=== PATIENT | male | born 1950 | race Caucasian/White ===

== ENCOUNTER 2017-06-12 02:07 | Inpatient (IN) | payer MEDICARE ==
[~2017-06-12] VITALS: Ht 180.3 cm; Wt 93.2 kg
[2017-06-12] VITALS (11 sets, daily range): BP systolic 144–183; BP diastolic 66–92
--- NOTE | ~2017-06-12 | CON ---
[place], [place] REPORT OF CONSULTATION NAME: [facility]Z [id number] UNIT #: [id number] ROOM: 403 DOCTOR: LA NENA TRAVIS,SEPTEMBER BIRTHDATE: [birth year] DOS: HISTORY OF PRESENT ILLNESS: The patient is a 67-year-old male who was admitted with abdominal pain. It began on the 06/11/2017. He was admitted on 06/12/2017. It was upper mid epigastric and radiated around to his back across the right side. He has been febrile while he has been hospitalized, some nausea, no emesis, had no stool since admission. He continues to run low grade temps. He was receiving Mefoxin that was changed to Zosyn this morning. His admitting blood cultures are now positive in one blood culture for gram-negative rods. ID is consulted for Gram-negative simon septicemia due to symptomatic cholelithiasis. He did have CT of the abdomen which demonstrated cholelithiasis without significant inflammation. Ultrasound of the gallbladder showed mild gallbladder wall thickening, but no biliary dilatation and diffuse hepatic steatosis. Repeat blood cultures were done this morning and are pending. He is being followed by Dr. Stockton with surgery. PAST MEDICAL HISTORY: As above as well as hyperlipidemia, diabetes, hypertension, right AKA, hip replacement. SOCIAL HISTORY: Drinks occasionally. He is a nonsmoker. No illicit drug use. FAMILY MEDICAL HISTORY: Father from an NV at the age of 59. Mother with CHF at the age of 75. ALLERGIES: No known drug allergies. CURRENT MEDICATIONS: Include Zosyn, which was ordered at 9 o'clock this morning at every 6 hours, 3.375 grams IV every 6 hours, Restoril, Zofran, morphine, milk of mag, Dulcolax, [place], and Tylenol. LABORATORY DATA: WBC is 14.0, platelets 93. BUN 10, creatinine 1.7, AST 61, ALT 73, alkaline phosphatase is 70, total bilirubin 1.0, lactic acid 2.0 yesterday evening, down from 2.4, lipase 167. REVIEW OF SYSTEMS: As above in history of present illness. States abdominal pain has improved somewhat. No cough or shortness of breath, is generally sore from hips to head from remaining in bed. Again, has a right AKA with prosthesis. He continues to run low grade temps up to 100.7 overnight. No shaking chills. No rashes. No nausea or vomiting, currently he is constipated. No peripheral edema. No difficulty with urination, pain or burning. Further review of systems is unremarkable. ALLERGIES: No known drug allergies. PHYSICAL EXAMINATION: VITAL SIGNS: Temperature 100.3, pulse 88, respirations 20, BP 140/74: GENERAL: A 67-year-old male, nontoxic in appearance. HEAD, EYES, EARS, NOSE AND THROAT: Normocephalic, no thrush. NECK: Supple. LUNGS: Clear to auscultation bilaterally. Respirations even and unlabored. [place], [place] REPORT OF CONSULTATION NAME: RORO FERNANDEZ UNIT #: [id number] ROOM: [facility] DOCTOR: LA NENA TRAVISSEPTEMBER BIRTHDATE: [birth year] HEART: Regular rhythm. No murmur appreciated. ABDOMEN: Soft. Mild distention, tenderness in right upper quadrant with deep palpation. No masses. Positive bowel sounds. EXTREMITIES: No edema. Does have right AKA. SKIN: Warm, dry, flushed, free of rashes. ASSESSMENT: Gram-negative simon septicemia due to cholelithiasis with no obstruction. PLAN: At this point, his antimicrobial spectrum has been expanded to Zosyn from Mefoxin since his blood cultures are positive, he does have some renal insufficiency, which has worsened since he was admitted. It was 1.13 on admission, now is up to 1.7. He has no eosinophils on his peripheral smear making reaction from his antibiotics less likely, again Zosyn has been started this a.m. The dosing needs to be adjusted for his renal insufficiency. Follow up on the blood cultures and adjust antibiotics accordingly. Case discussed with Dr. Hyun Caldera. After reviewing the chart, labs and cultures, I agree with the above plans as described. We will follow the patient up clinically and adjust accordingly. AQUILES DEUTSCH CNP HYUN CALDERA MD CM:CONSTR:REPORT OF CONSULTATION 1047 06/15/17 1010 interface
--- NOTE | ~2017-06-12 | PR ---
[place], [place] PROGRESS NOTE NAME: RORO FERNANDEZ UNIT #: [id number] ROOM: 403 DOCTOR: LA NENA TRAVIS,SEPTEMBER BIRTHDATE: [birth year] DOS: SUBJECTIVE: The patient is a 67-year-old male who is being followed for cholelithiasis with Klebsiella septicemia. He feels well. No nausea, vomiting or diarrhea. No abdominal pain. No cough or shortness of breath. Tem max today has been 99. His WBCs are 11.6, platelets 108. Sed rate 105, BUN 12, creatinine 1.09, AST 62, ALT 85, CRP 28.2. Blood cultures grew Klebsiella from the , which is pansensitive. The repeat blood cultures are sterile. He is currently on Lipitor, Zestril, Zosyn, Restoril, Zofran, milk of mag, Dulcolax and [place]. He has been released by Dr. Bautista with surgery, who plans on doing a cholecystectomy as an outpatient. PHYSICAL EXAMINATION: VITAL SIGNS: Temperature 99.0, pulse 74, respirations 18, BP 143/71. GENERAL: A 67-year-old male, in no acute distress. HEAD, EYES, EARS, NOSE AND THROAT: Normocephalic. No thrush. LUNGS: Clear to auscultation bilaterally. Respirations even and unlabored. HEART: Regular rhythm. No murmur appreciated. ABDOMEN: Soft, obese, nontender. EXTREMITIES: No edema. SKIN: Warm, dry, free of rashes. ASSESSMENT: Cholelithiasis, symptomatic with Klebsiella bacteremia. PLAN: I agree with surgery. At this point, he can be discharged on Augmentin. I did phone a script to [facility] for Augmentin 875 mg p.o. b.i.d., dispensed 14, no refills and he will see Dr. Bautista in follow up regarding further workup and a possible cholecystectomy. I also gave him my contact information if he has any trouble after he goes home with fever recurrence, etc. SEPTEMBER THADDEUS DEUSTCH [place], [place] PROGRESS NOTE NAME: RORO FERNANDEZ UNIT #: [id number] ROOM: 403 DOCTOR: L ANENA TRAVIS,SEPTEMBER BIRTHDATE: [birth year] HYUN CALDERA MD CM:PNTRANS [id number] SEPTEMBER LA NENA TRAVIS 06/16/17 2349 interface
--- NOTE | ~2017-06-12 | PR ---
[place], [place] PROGRESS NOTE NAME: [id number] UNIT #: [id number] ROOM: 403 DOCTOR: LA NENA TRAVIS,SEPTEMBER BIRTHDATE: [birth year] DOS: 06/15/2017 SUBJECTIVE: The patient is being followed for gram-negative simon septicemia. He has been afebrile today. His last temp max was 101.8 and that was at 6:45 yesterday evening. His WBCs are improving, they are down to 11.8 today. He has multiple gallstones without obstruction. His bilirubin is at 1.4. Creatinine has improved to 1.2, BUN 11. AST 71, ALT 83. He is alert and oriented, feeling better. No abdominal pain. No nausea or vomiting. Little loose stool x 1 this morning. No rash or itch. No cough or shortness of breath. LABORATORY DATA: WBCs 11.8, platelets 99. BUN 11, creatinine 1.2. Admitting Blood culture from June 13 with gram-negative rods. Repeat blood cultures from the are negative. CURRENT MEDICATIONS: Include Lipitor, Zestril, Zosyn, Restoril, Zofran, milk of mag, Dulcolax, [place]. PHYSICAL EXAMINATION: VITAL SIGNS: Show temperature 98.7, pulse 92, respirations 18, BP 149/72. GENERAL: A 67-year-old male, in no acute distress, nontoxic in appearance. HEAD, EYES, EARS, NOSE AND THROAT: Normocephalic. No thrush. LUNGS: Clear to auscultation bilaterally. Respirations even and unlabored. HEART: Regular rhythm. No murmur appreciated. ABDOMEN: Soft, less tender right upper quad. EXTREMITIES: No edema or deformity. He does have right AKA. SKIN: Warm, dry, free of rashes, flushed. ASSESSMENT: Gram-negative simon septicemia due to cholelithiasis. PLAN: He is currently on Zosyn with WBCs and temperature improving. We will continue the Zosyn and transition to orals once the bacteria has been identified and hopefully with sensitivities. We will even consider discharge. I agree Augmentin would probably be a good option depending on the gram-negative simon identified versus Levaquin and Flagyl. Case discussed with Dr. Hyun Caldera. ADDENDUM I agree with the above plans as described. We will follow the patient up and adjust accordingly. AQUILES DEUTSCH CNP [place], [place] PROGRESS NOTE NAME: RORO FERNANDEZ UNIT #: [id number] ROOM: 403 DOCTOR: LA NENA TRAVISSEPTEMBER BIRTHDATE: [birth year] HYUN CALDERA MD CM:PNTRANS [id number] AQUILES LA NENA TRAVIS 06/16/17 0146 interface
[~2017-06-12 02:07] MED LIST: NKHM; PERCOCET 325 MG1 TA7 PO
[2017-06-12] MEDS ORDERED: METFORMIN850 MG PO (02:16)
[2017-06-12] MEDS ORDERED: PRINIVIL20 M1 PO (02:17)
[2017-06-12 02:52] LABS: BASO % 0.1 % (0.0-1.0); EOS % 0.1 % (1.0-4.0); HEMOGLOBIN 15.6 g/dl (14.0-18.0); LYMPH # 0.9 10*3/uL (1.3-4.4); LYMPH % 6.3 % (27.0-41.0); MEAN CELL VOLUME 89.3 fl (80.0-94.0); MEAN CORPUSCULAR HGB CONC 34.7 g/dl (33.0-37.0); MEAN PLATELET VOLUME 10.9 fl (9.6-12.3); MONO # 0.8 10*3/uL (0.1-1.0); MONO % 5.8 % (3.0-9.0); NEUT # 12.3 10*3/uL (2.3-7.9); NEUT % 87.3 % (47.0-73.0); PLATELET COUNT AUTOMATED 188 10*3/uL (130-400); RED BLOOD COUNT 5.04 10*6/uL (4.50-5.90); RED CELL DISTRI WIDTH 13.1 % (0-14.5); WHITE BLOOD COUNT 14.1 10*3/uL (4.8-10.8)
[2017-06-12 03:11] LABS: ALKALINE PHOSPHATASE 72 U/L (45-117); BUN 13 mg/dl (7-24); CHLORIDE 100 mmol/L (98-107); CREATININE 1.13 mg/dL (0.70-1.30); LIPASE 323 U/L (73-393); POTASSIUM 3.9 mmol/L (3.5-5.1); SGOT/AST 15 IU/L (3-35); SGPT/ALT 23 U/L (12-78); SODIUM 136 mmol/L (136-145); TOTAL PROTEIN 7.9 gm/dL (6.4-8.2)
[2017-06-12 03:12] LABS: TROPONIN I < 0.015 ng/ml (<0.045)
[2017-06-12] MEDS ORDERED: LIPITOR20 MG PO (05:29)
[2017-06-12 15:51] LABS: BILIRUBIN NEGATIVE (NEGATIVE); BLOOD NEGATIVE (NEGATIVE); CLARITY CLEAR (CLEAR); COLOR YELLOW (YELLOW); GLUCOSE TRACE (NEGATIVE); KETONE NEGATIVE (NEGATIVE); LEUKO ESTERASE NEGATIVE (NEGATIVE); NITRITE NEGATIVE (NEGATIVE); PH 6.5 (5.0-9.0); SPECIFIC GRAVITY 1.015 (1.005-1.030); UROBILINOGEN 0.2 E.U./dl (0.2-1.0)
[2017-06-12 16:29] LABS: BACTERIA TRACE; RBC 0-2 rbc/hpf (0-2); WBC 0-2 wbc/hpf (0-5)
[2017-06-13] VITALS: BP 149/68
[2017-06-13 04:00] VITALS: BP 145/78
[2017-06-13 06:54] LABS: BASO % 0.1 % (0.0-1.0); HEMATOCRIT 42.4 % (42.0-52.0); HEMOGLOBIN 14.5 g/dl (14.0-18.0); INTERNATIONAL NORM RATIO 1.1 (2.0-3.5); LYMPH # 0.9 10*3/uL (1.3-4.4); LYMPH % 6.4 % (27.0-41.0); MEAN CELL VOLUME 90.6 fl (80.0-94.0); MEAN CORPUSCULAR HGB CONC 34.2 g/dl (33.0-37.0); MEAN PLATELET VOLUME 10.9 fl (9.6-12.3); MONO # 0.8 10*3/uL (0.1-1.0); MONO % 5.5 % (3.0-9.0); NEUT % 87.5 % (47.0-73.0); RED BLOOD COUNT 4.68 10*6/uL (4.50-5.90); RED CELL DISTRI WIDTH 13.2 % (0-14.5); WHITE BLOOD COUNT 13.7 10*3/uL (4.8-10.8)
[2017-06-13 06:57] LABS: PLATELET COUNT AUTOMATED 129 10*3/uL (130-400)
[2017-06-13 07:07] LABS: ALBUMIN 3.3 gm/dl (3.1-4.5); CREATININE 1.74 mg/dL (0.70-1.30); FREE T4 1.17 ng/dl (0.76-1.46); PHOSPHOROUS 2.5 mg/dL (2.5-4.9); TOTAL PROTEIN 7.2 gm/dL (6.4-8.2)
[2017-06-13 07:12] LABS: THYROID STIM HORMONE (HS) 0.35 uIU/ml (0.358-4.75)
[2017-06-13 08:00] VITALS: BP 144/70
[2017-06-13 12:00] VITALS: BP 141/76
[2017-06-13 16:00] VITALS: BP 141/73
[2017-06-13 19:54] VITALS: BP 165/77
[2017-06-14] VITALS: BP 140/74
[2017-06-14 06:39] LABS: BASO % 0.1 % (0.0-1.0); HEMATOCRIT 42.1 % (42.0-52.0); HEMOGLOBIN 14.5 g/dl (14.0-18.0); LYMPH # 0.6 10*3/uL (1.3-4.4); LYMPH % 4.4 % (27.0-41.0); MEAN CELL VOLUME 92.1 fl (80.0-94.0); MEAN CORPUSCULAR HGB 31.7 pg (27.0-31.0); MEAN CORPUSCULAR HGB CONC 34.4 g/dl (33.0-37.0); MEAN PLATELET VOLUME 10.3 fl (9.6-12.3); MONO # 0.9 10*3/uL (0.1-1.0); MONO % 6.5 % (3.0-9.0); NEUT # 12.4 10*3/uL (2.3-7.9); NEUT % 88.7 % (47.0-73.0); PLATELET COUNT AUTOMATED 93 10*3/uL (130-400); RED BLOOD COUNT 4.57 10*6/uL (4.50-5.90); RED CELL DISTRI WIDTH 13.2 % (0-14.5)
[2017-06-14 07:09] LABS: ALBUMIN 2.8 gm/dl (3.1-4.5); CREATININE 1.7 mg/dL (0.70-1.30); POTASSIUM 4.3 mmol/L (3.5-5.1)
[2017-06-14 08:00] VITALS: BP 146/78
[2017-06-14 12:00] VITALS: BP 160/74
[2017-06-14 16:31] VITALS: BP 171/81
[2017-06-15] VITALS: BP 154/58
[2017-06-15 07:07] LABS: BASO % 0.2 % (0.0-1.0); HEMOGLOBIN 12.5 g/dl (14.0-18.0); LYMPH # 0.6 10*3/uL (1.3-4.4); MEAN CELL VOLUME 90.5 fl (80.0-94.0); MEAN CORPUSCULAR HGB 30.6 pg (27.0-31.0); MEAN CORPUSCULAR HGB CONC 33.8 g/dl (33.0-37.0); MEAN PLATELET VOLUME 11.4 fl (9.6-12.3); MONO # 1.1 10*3/uL (0.1-1.0); MONO % 9.2 % (3.0-9.0); NEUT # 10.1 10*3/uL (2.3-7.9); NEUT % 84.9 % (47.0-73.0); PLATELET COUNT AUTOMATED 99 10*3/uL (130-400); RED BLOOD COUNT 4.09 10*6/uL (4.50-5.90); RED CELL DISTRI WIDTH 13.1 % (0-14.5); WHITE BLOOD COUNT 11.8 10*3/uL (4.8-10.8)
[2017-06-15 07:29] LABS: ALBUMIN 2.4 gm/dl (3.1-4.5); ALKALINE PHOSPHATASE 68 U/L (45-117); BUN 11 mg/dl (7-24); CHLORIDE 105 mmol/L (98-107); SGOT/AST 71 IU/L (3-35); SGPT/ALT 83 U/L (12-78); SODIUM 136 mmol/L (136-145); TOTAL PROTEIN 6.5 gm/dL (6.4-8.2)
[2017-06-15 08:00] VITALS: BP 160/74
[2017-06-15 12:00] VITALS: BP 149/72
[2017-06-15 16:00] VITALS: BP 163/71
[2017-06-15 20:00] VITALS: BP 121/51
[2017-06-16] VITALS: BP 129/71
[2017-06-16 06:39] LABS: BASO % 0.1 % (0.0-1.0); EOS % 0.1 % (1.0-4.0); HEMATOCRIT 35.9 % (42.0-52.0); HEMOGLOBIN 12.3 g/dl (14.0-18.0); LYMPH # 0.6 10*3/uL (1.3-4.4); LYMPH % 5.3 % (27.0-41.0); MEAN CELL VOLUME 90.7 fl (80.0-94.0); MEAN CORPUSCULAR HGB 31.1 pg (27.0-31.0); MEAN CORPUSCULAR HGB CONC 34.3 g/dl (33.0-37.0); MEAN PLATELET VOLUME 11.2 fl (9.6-12.3); MONO # 1.3 10*3/uL (0.1-1.0); MONO % 11.2 % (3.0-9.0); NEUT # 9.6 10*3/uL (2.3-7.9); NEUT % 82.5 % (47.0-73.0); PLATELET COUNT AUTOMATED 108 10*3/uL (130-400); RED BLOOD COUNT 3.96 10*6/uL (4.50-5.90); RED CELL DISTRI WIDTH 13.3 % (0-14.5); WHITE BLOOD COUNT 11.6 10*3/uL (4.8-10.8)
[2017-06-16 07:09] LABS: ALBUMIN 2.1 gm/dl (3.1-4.5); BUN 12 mg/dl (7-24); CHLORIDE 106 mmol/L (98-107); CREATININE 1.09 mg/dL (0.70-1.30); LIPASE 334 U/L (73-393); POTASSIUM 3.4 mmol/L (3.5-5.1); SGOT/AST 62 IU/L (3-35); SGPT/ALT 85 U/L (12-78); SODIUM 138 mmol/L (136-145)
[2017-06-16 07:24] LABS: ALKALINE PHOSPHATASE 73 U/L (45-117); TOTAL PROTEIN 6.3 gm/dL (6.4-8.2)
[2017-06-16 08:00] VITALS: BP 146/76
[2017-06-16 12:00] VITALS: BP 143/71
[2017-06-16 16:00] VITALS: BP 151/71
== END 2017-06-16 17:03 | disposition home or self-care (01) | DRG 872 ==
LOC: ED 02:07 → 4E 04:17 → EDHOLD 04:17 → 4E 04:33
PROVIDERS: Family Medicine; Internal Medicine; Student in an Organized Health Care Education/Training Program
DX: A41.59 Other Gram-negative sepsis (principal); K80.00 Calculus of gallbladder with acute cholecystitis without obstruction; Z89.611 Acquired absence of right leg above knee; I10 Essential (primary) hypertension; E11.65 Type 2 diabetes mellitus with hyperglycemia; E78.2 Mixed hyperlipidemia; Z96.649 Presence of unspecified artificial hip joint; Z79.899 Other long term (current) drug therapy; Z79.84 Long term (current) use of oral hypoglycemic drugs; Z82.49 Family history of ischemic heart disease and other diseases of the circulatory system

== ENCOUNTER → 2017-06-21 | Day surgery (SDC) | payer MEDICARE ==
[2017-06-20 11:03] VITALS: BP 127/88
[2017-06-20 11:45] LABS: BASO % 0.2 % (0.0-1.0); EOS # 0.1 10*3/uL (0.0-0.4); EOS % 0.5 % (1.0-4.0); HEMATOCRIT 39.1 % (42.0-52.0); HEMOGLOBIN 13.3 g/dl (14.0-18.0); LYMPH # 0.8 10*3/uL (1.3-4.4); LYMPH % 8.8 % (27.0-41.0); MEAN CELL VOLUME 90.9 fl (80.0-94.0); MEAN CORPUSCULAR HGB 30.9 pg (27.0-31.0); MEAN PLATELET VOLUME 10.7 fl (9.6-12.3); MONO # 0.6 10*3/uL (0.1-1.0); MONO % 6.5 % (3.0-9.0); NEUT # 7.8 10*3/uL (2.3-7.9); NEUT % 82.7 % (47.0-73.0); PLATELET COUNT AUTOMATED 341 10*3/uL (130-400); RED CELL DISTRI WIDTH 13.3 % (0-14.5); WHITE BLOOD COUNT 9.5 10*3/uL (4.8-10.8)
[2017-06-20 12:28] LABS: ALBUMIN 2.8 gm/dl (3.1-4.5); ALKALINE PHOSPHATASE 71 U/L (45-117); BUN 13 mg/dl (7-24); CHLORIDE 104 mmol/L (98-107); CREATININE 1.09 mg/dL (0.70-1.30); POTASSIUM 3.7 mmol/L (3.5-5.1); SGOT/AST 29 IU/L (3-35); SGPT/ALT 61 U/L (12-78); SODIUM 141 mmol/L (136-145); TOTAL PROTEIN 7.6 gm/dL (6.4-8.2)
[~2017-06-21] VITALS: Ht 180.3 cm; Wt 86.2 kg
[~2017-06-21] MED LIST changes: +LIPITOR20 MG PO; +METFORMIN850 MG PO; +PRINIVIL20 M1 PO
--- NOTE | ~2017-06-21 | O ---
[place], [place] OPERATIVE NOTE NAME: [facility]Z [id number] UNIT #: [id number] ROOM: DOCTOR: RICKIE CRAIN MD BIRTHDATE: [birth year] DOS: 06/21/2017 PREOPERATIVE DIAGNOSIS: Calculous cholecystitis. POSTOPERATIVE DIAGNOSES: Acute on chronic calculous cholecystitis, intraoperative bleeding, suspected hepatic vein. PROCEDURE: Laparoscopic cholecystectomy with intraoperative cholangiogram converted to open cholecystectomy dome-down, attempted control of intraoperative bleeding. SURGEON: Rickie Crain M.D. ANESTHESIA: General. ESTIMATED BLOOD LOSS: 2500 mL. FLUIDS: Crystalloid 5500 mL, 1000 has been 4 units packed red cells. DRAINS: None. Satinsky clamps above and below injury, no evidence of liver ischemia. Gallbladder still attached and cystic duct has not been transected. Intraoperative cholangiogram showed common bile duct stones with good visualization of the proximal and distal common bile ducts, but poor visualization of cystic duct stump and inability to identify this. Findings discussed with Dr. Carolina, trauma surgeon who accepted transfer. INDICATIONS: This is a 67-year-old gentleman who had come in with what was initially thought to be symptomatic biliary colic on June 12 and was treated with IV antibiotics for what appeared to be acute cholecystitis. White count came down after change from cefoxitin to Zosyn and he was sent home with clinical resolution and normalizing white count on June 16 with continued oral antibiotics, Augmentin 875 mg b.i.d. He was seen in the office on June 19 and wished to proceed with cholecystectomy before the end of the year, but clinically was feeling better with normal bowel function and tolerating a diet. The patient now for cholecystectomy with the risks, benefits, possible complications of procedure discussed with him in the office and in the hospital preoperatively and at the bedside with his as well during his hospitalization. DESCRIPTION OF PROCEDURE: The patient brought to the operating suite, placed on table in supine position. Adequate conscious sedation and general anesthetic was induced. Endotracheal tube was placed secured. The abdomen was prepped and draped in sterile fashion including placement of orogastric Ellsworth Sump to decompress the stomach. The patient voided preoperatively. He received the antibiotic prophylaxis preoperatively with cefazolin with weight appropriate dosage per SCIP protocol. The abdomen was entered through a small supraumbilical incision and using the patient's existing umbilical ring was easily entered and open pneumoperitoneum thus achieved. The abdomen was [place], [place] OPERATIVE NOTE NAME: RORO FERNANDEZ UNIT #: [id number] ROOM: DOCTOR: BREANN MAGALLONRICKIE PARUL BIRTHDATE: [birth year] insufflated with appropriate volume and filling pressure of carbon dioxide gas. Diagnostic laparoscopy ensued and the patient was seen to have omentum fairly adherent to the gallbladder, consistent with his prior cholecystitis. The patient had trocar sites then placed through separate stab incisions under local anesthetic. A 5 mm Optiview trocar was placed in the subxiphoid and in the right lateral flank. The gallbladder was elevated slightly into a very tedious dissection with blunt dissection and electrocautery and sharp dissection, the omentum was taken down from the liver edge and from the gallbladder that was quite adherent. This was freed through a fairly protracted careful dissection due to the inflammatory reaction on the gallbladder. Once this was done, requiring about an hour of dissection, this was better exposed. There was a small hole in the gallbladder from retracting it due to being somewhat friable due to the inflammation. This was dealt with as best as possible, eventually was controlled with an Endoloop of 0 PDS and the gallbladder retracted back over the liver. A fourth trocar was then placed in the right flank as well under local anesthetic to retract the neck of the gallbladder. This could not really be ascertained well due to the inflammation and ____ was used to gently retract inferiorly and push the duodenum out of the way to better open the peritoneum of the hepatoduodenal ligament, proximal by the neck of the gallbladder and try to ascertain the site. Once enough of the gallbladder was freed, attention was directed to fluoro cholangiography using a Perdue clamp and needle. It was difficult to ascertain where the neck of the gallbladder was and cholangiography was successful, showing the extrahepatic biliary duct well with stones in the proximal common bile duct, but flow into the duodenum. Multiple stones were present. The cholangiogram needle could be seen probably fairly close to the origin of the cystic duct, but the cystic duct was not well visualized. Because of this, after looking at the films and consulting with the fire prevention chief who had arrived, it was decided to open to complete the cholecystectomy and then perform ERCP either later in the day or remotely, as the patient has had no episodes of jaundice clinically in spite of the stones. At this point, the case was converted to open cholecystectomy through a standard right subcostal muscle splitting incision. Bookwalter retractor was placed for exposure. Attention was then directed to dome-down cholecystectomy with cautery. The gallbladder was being taken down inferiorly and ____ still short of the neck of the Gallbladder the anatomy was quite inflamed and difficult to ascertain. The gallbladder was opened and 3 large stones removed and handed off as specimen and the casting operator's index finger inserted to feel for the neck of the gallbladder. It could be seen that the very distal gallbladder just above the site of the cholangiography needle insertion was just towards the neck of the gallbladder from the end that could be reached with the finger with assumption that this was the origin, beginning of the cystic duct leaving the gallbladder at the neck of the gallbladder. Using this as a guide, the cautery was used to further skeletonize the gallbladder from the liver. During retraction of this some bleeding was encountered. It was difficult to tell whether this was from in the parenchyma of the liver and initially was controlled with cautery and then there was a fairly significant bruno of bleeding as this was done. This was immediately controlled with the casting operator's finger with digital pressure. Further suction and exposure was attempted with additional assistance in the operating room including calling for one of the hospital primary care residents for additional set of hands to retract with inability to expose this and [place], [place] OPERATIVE NOTE NAME: RORO FERNANDEZ UNIT #: [id number] ROOM: DOCTOR: RICKIE CRAIN MD BIRTHDATE: [birth year] adequately control the bleeding, other than with keeping from direct pressure on the site with laparotomy pad. The incision was opened further and with similar results, but the patient was hemodynamically stable as this was done, keeping digital pressure at the area. Vascular clamps were obtained and eventually with placement of 2 straight and 1 side-biting clamp, the attention was directed to clamping above and below with digital pressure was present and this adequately controlled the bleeding. ____ this was part of the hepatic vein or if this was part of the portal vein. Initial attempts to get better exposure and assess this injury for repair were performed and with further bleeding on evaluation, the clamp was replaced and left in place. At this point having made multiple calls to try and get more experienced help including vascular surgeon, additional general surgeon from the staff and other physician support, with patient hemodynamically stable, a call was made to [facility] with conversation with Dr. Carolina from the Trauma Surgery Program who accepted the patient for transfer. The patient is being sent with Satinsky clamps in place and with his laparotomy incision packed with an Ioban drape and occlusive dressing over this for transport. He has arterial line, Morrison catheter, which was placed intraoperatively prior to opening the subcostal incision during conversion to open cholecystectomy and esophageal bleed. The patient is stable with adequate hemodynamics and fluids and blood loss as noted. I will be in contact with Dr. Carolina and offered to accompany the patient during transport, which he felt was probably not necessary as long as the clamps are in place. RICKIE CRAIN MD CM:OPRECORD:OPERATIVE NOTE [id number] RICKIE CRAIN MD 06/21/172031 interface
[2017-06-21 07:13] VITALS: BP 145/85
[2017-06-21 13:37] LABS: HEMATOCRIT 23.4 % (42.0-52.0)
== END | disposition home or self-care (01) ==
LOC: SDC 06-20 11:00 → 4E 10:54 → SDC 10:54
DX: K80.46 Calculus of bile duct with acute and chronic cholecystitis without obstruction (principal); Z53.31 Laparoscopic surgical procedure converted to open procedure; E11.9 Type 2 diabetes mellitus without complications; I10 Essential (primary) hypertension; E78.5 Hyperlipidemia, unspecified; Z79.84 Long term (current) use of oral hypoglycemic drugs; Z89.611 Acquired absence of right leg above knee

== ENCOUNTER → 2018-02-20 | Outpatient (CLI) | payer MEDICARE ==
[~2018-02-20] MED LIST changes: +ASPIRIN CHEWABL81 MG PO; +COLACE100 MG PO; +Lopressor25 MG PO; +METOCLOPRAMIDE5 MG PO; +PROTONIX TR40 M1 PO; +SEPTDS PO; +SIROLIMUS1 MG PO
[2018-02-20 09:10] LABS: BASO # 0.1 10*3/uL (0.0-0.1); BASO % 0.6 % (0.0-1.0); EOS # 0.4 10*3/uL (0.0-0.4); HEMATOCRIT 39.7 % (42.0-52.0); HEMOGLOBIN 11.6 g/dl (14.0-18.0); LYMPH # 1.8 10*3/uL (1.3-4.4); LYMPH % 21.6 % (27.0-41.0); MEAN CELL VOLUME 81.7 fl (80.0-94.0); MEAN CORPUSCULAR HGB 23.9 pg (27.0-31.0); MEAN CORPUSCULAR HGB CONC 29.2 g/dl (33.0-37.0); MONO # 0.7 10*3/uL (0.1-1.0); MONO % 8.8 % (3.0-9.0); NEUT # 5.2 10*3/uL (2.3-7.9); NEUT % 63.4 % (47.0-73.0); PLATELET COUNT AUTOMATED 337 10*3/uL (130-400); RED BLOOD COUNT 4.86 10*6/uL (4.50-5.90); WHITE BLOOD COUNT 8.3 10*3/uL (4.8-10.8)
[2018-02-20 09:23] LABS: ACT PARTIAL THROMBO TIME 24.1 SECONDS (20.8-31.5); ALBUMIN 2.6 gm/dl (3.1-4.5); CREATININE 3.6 mg/dL (0.70-1.30); PHOSPHOROUS 3.8 mg/dL (2.5-4.9); POTASSIUM 4.1 mmol/L (3.5-5.1)
[2018-02-25 06:03] LABS: CMV QNT Negative (Negative)
== END | disposition home or self-care (01) ==
LOC: LAB 08:41
PROVIDERS: Transplant Surgery
DX: D68.8 Other specified coagulation defects (principal); Z94.4 Liver transplant status

== ENCOUNTER → 2018-03-10 | Outpatient (CLI) | payer MEDICARE | LOC: LAB 13:19 | DX: N18.9 Chronic kidney disease, unspecified (principal) ==

== ENCOUNTER → 2018-03-20 | Outpatient (CLI) | payer MEDICARE ==
[2018-03-20 09:25] LABS: BASO % 0.6 % (0.0-1.0); EOS # 0.4 10*3/uL (0.0-0.4); EOS % 5.3 % (1.0-4.0); HEMOGLOBIN 10.1 g/dl (14.0-18.0); LYMPH # 1.7 10*3/uL (1.3-4.4); LYMPH % 26.2 % (27.0-41.0); MEAN CELL VOLUME 78.1 fl (80.0-94.0); MEAN CORPUSCULAR HGB 22.5 pg (27.0-31.0); MEAN CORPUSCULAR HGB CONC 28.9 g/dl (33.0-37.0); MEAN PLATELET VOLUME 9.9 fl (9.6-12.3); MONO # 0.6 10*3/uL (0.1-1.0); MONO % 9.8 % (3.0-9.0); NEUT # 3.8 10*3/uL (2.3-7.9); NEUT % 57.8 % (47.0-73.0); PLATELET COUNT AUTOMATED 322 10*3/uL (130-400); RED BLOOD COUNT 4.48 10*6/uL (4.50-5.90); RED CELL DISTRI WIDTH 17.6 % (0-14.5); WHITE BLOOD COUNT 6.6 10*3/uL (4.8-10.8)
[2018-03-20 10:03] LABS: ALBUMIN 2.6 gm/dl (3.1-4.5); CREATININE 3.44 mg/dL (0.70-1.30); PHOSPHOROUS 3.9 mg/dL (2.5-4.9); TOTAL PROTEIN 8.7 gm/dL (6.4-8.2)
[2018-03-20 10:04] LABS: INTERNATIONAL NORM RATIO 0.9 (2.0-3.5)
[2018-03-22 20:06] LABS: CMV QNT Negative (Negative)
== END | disposition home or self-care (01) ==
LOC: LAB 09:03
PROVIDERS: Transplant Surgery
DX: Z48.23 Encounter for aftercare following liver transplant (principal); N18.9 Chronic kidney disease, unspecified; Z94.4 Liver transplant status

== ENCOUNTER → 2018-04-03 | Outpatient (CLI) | payer MEDICARE ==
[2018-04-03 08:45] LABS: BASO % 0.3 % (0.0-1.0); EOS # 0.2 10*3/uL (0.0-0.4); HEMATOCRIT 33.1 % (42.0-52.0); HEMOGLOBIN 9.9 g/dl (14.0-18.0); MEAN CELL VOLUME 75.6 fl (80.0-94.0); MEAN CORPUSCULAR HGB 22.6 pg (27.0-31.0); MEAN CORPUSCULAR HGB CONC 29.9 g/dl (33.0-37.0); MEAN PLATELET VOLUME 10.2 fl (9.6-12.3); MONO # 0.6 10*3/uL (0.1-1.0); MONO % 9.2 % (3.0-9.0); NEUT # 3.8 10*3/uL (2.3-7.9); NEUT % 56.9 % (47.0-73.0); PLATELET COUNT AUTOMATED 254 10*3/uL (130-400); RED BLOOD COUNT 4.38 10*6/uL (4.50-5.90); RED CELL DISTRI WIDTH 18.6 % (0-14.5); WHITE BLOOD COUNT 6.7 10*3/uL (4.8-10.8)
[2018-04-03 09:14] LABS: ALBUMIN 2.7 gm/dl (3.1-4.5); BILIRUBIN, DIRECT < 0.1 mg/dL (0.0-0.2); BUN 52 mg/dl (7-24); CHLORIDE 109 mmol/L (98-107); CHOLESTEROL 218 mg/dL (<200); CREATININE 3.37 mg/dL (0.70-1.30); GAMMA GLUTAMYL TRANSPEPTIDASE 280 U/L (15-85); HDL CHOLESTEROL 41 mg/dl (40-60); PHOSPHOROUS 3.2 mg/dL (2.5-4.9); POTASSIUM 4.2 mmol/L (3.5-5.1); SGOT/AST 28 IU/L (3-35); SGPT/ALT 54 U/L (12-78); SODIUM 140 mmol/L (136-145)
[2018-04-03 09:17] LABS: ALKALINE PHOSPHATASE 295 U/L (45-117); LDL CHOLESTEROL 121 mg/dL (9-159); TOTAL PROTEIN 8.9 gm/dL (6.4-8.2); TRIGLYCERIDES 280 mg/dl (<150); VLDL CHOLESTEROL 56 mg/dL (6-40)
== END | disposition home or self-care (01) ==
LOC: LAB 08:12
PROVIDERS: Transplant Surgery
DX: Z48.23 Encounter for aftercare following liver transplant (principal); Z94.4 Liver transplant status

== ENCOUNTER → 2018-04-17 | Outpatient (CLI) | payer MEDICARE ==
[2018-04-17 09:40] LABS: BASO % 0.4 % (0.0-1.0); EOS # 0.1 10*3/uL (0.0-0.4); EOS % 1.8 % (1.0-4.0); HEMOGLOBIN 8.7 g/dl (14.0-18.0); LYMPH # 2.4 10*3/uL (1.3-4.4); LYMPH % 30.7 % (27.0-41.0); MEAN CORPUSCULAR HGB 21.8 pg (27.0-31.0); MONO # 0.7 10*3/uL (0.1-1.0); MONO % 8.9 % (3.0-9.0); NEUT # 4.6 10*3/uL (2.3-7.9); NEUT % 57.8 % (47.0-73.0); PLATELET COUNT AUTOMATED 302 10*3/uL (130-400); RED CELL DISTRI WIDTH 18.7 % (0-14.5); WHITE BLOOD COUNT 7.9 10*3/uL (4.8-10.8)
[2018-04-17 10:06] LABS: ALBUMIN 2.6 gm/dl (3.1-4.5); BUN 58 mg/dl (7-24); CHLORIDE 109 mmol/L (98-107); CREATININE 4.67 mg/dL (0.70-1.30); GAMMA GLUTAMYL TRANSPEPTIDASE 350 U/L (15-85); POTASSIUM 4.3 mmol/L (3.5-5.1); SGOT/AST 32 IU/L (3-35); SGPT/ALT 63 U/L (12-78); SODIUM 139 mmol/L (136-145); TOTAL PROTEIN 8.9 gm/dL (6.4-8.2)
[2018-04-17 10:11] LABS: ALKALINE PHOSPHATASE 374 U/L (45-117); BILIRUBIN, DIRECT < 0.1 mg/dL (0.0-0.2); CHOLESTEROL 230 mg/dL (<200); HDL CHOLESTEROL 45 mg/dl (40-60); LDL CHOLESTEROL 140 mg/dL (9-159); PHOSPHOROUS 3.8 mg/dL (2.5-4.9); TRIGLYCERIDES 227 mg/dl (<150); VLDL CHOLESTEROL 45 mg/dL (6-40)
== END | disposition home or self-care (01) ==
LOC: LAB 09:05
PROVIDERS: Transplant Surgery
DX: Z48.23 Encounter for aftercare following liver transplant (principal); Z94.4 Liver transplant status

== ENCOUNTER → 2018-04-24 | Outpatient (CLI) | payer MEDICARE ==
[2018-04-24 09:32] LABS: BASO % 0.4 % (0.0-1.0); EOS # 0.1 10*3/uL (0.0-0.4); EOS % 1.4 % (1.0-4.0); HEMATOCRIT 30.1 % (42.0-52.0); HEMOGLOBIN 8.8 g/dl (14.0-18.0); LYMPH # 2.3 10*3/uL (1.3-4.4); LYMPH % 33.6 % (27.0-41.0); MEAN CELL VOLUME 74.7 fl (80.0-94.0); MEAN CORPUSCULAR HGB 21.8 pg (27.0-31.0); MEAN CORPUSCULAR HGB CONC 29.2 g/dl (33.0-37.0); MEAN PLATELET VOLUME 10.1 fl (9.6-12.3); MONO # 0.7 10*3/uL (0.1-1.0); MONO % 9.8 % (3.0-9.0); NEUT # 3.7 10*3/uL (2.3-7.9); NEUT % 54.1 % (47.0-73.0); PLATELET COUNT AUTOMATED 356 10*3/uL (130-400); RED BLOOD COUNT 4.03 10*6/uL (4.50-5.90); RED CELL DISTRI WIDTH 19.6 % (0-14.5); WHITE BLOOD COUNT 6.9 10*3/uL (4.8-10.8)
[2018-04-24 09:45] LABS: ALBUMIN 2.9 gm/dl (3.1-4.5); BILIRUBIN, DIRECT < 0.1 mg/dL (0.0-0.2); BUN 61 mg/dl (7-24); CHLORIDE 111 mmol/L (98-107); CHOLESTEROL 236 mg/dL (<200); CREATININE 4.27 mg/dL (0.70-1.30); GAMMA GLUTAMYL TRANSPEPTIDASE 291 U/L (15-85); PHOSPHOROUS 4.4 mg/dL (2.5-4.9); POTASSIUM 4.5 mmol/L (3.5-5.1); SGOT/AST 24 IU/L (3-35); SGPT/ALT 53 U/L (12-78); SODIUM 139 mmol/L (136-145); TOTAL PROTEIN 8.9 gm/dL (6.4-8.2); TRIGLYCERIDES 363 mg/dl (<150); VLDL CHOLESTEROL 73 mg/dL (6-40)
[2018-04-24 09:46] LABS: ALKALINE PHOSPHATASE 285 U/L (45-117); HDL CHOLESTEROL 35 mg/dl (40-60); LDL CHOLESTEROL 128 mg/dL (9-159)
== END | disposition home or self-care (01) ==
LOC: LAB 09:08
PROVIDERS: Transplant Surgery
DX: Z48.23 Encounter for aftercare following liver transplant (principal); Z94.4 Liver transplant status

== ENCOUNTER → 2018-05-01 | Outpatient (CLI) | payer MEDICARE ==
[~2018-05-01] MED LIST changes: -ASPIRIN CHEWABL81 MG PO; -COLACE100 MG PO; -Lopressor25 MG PO; -METOCLOPRAMIDE5 MG PO; -PROTONIX TR40 M1 PO; -SEPTDS PO; -SIROLIMUS1 MG PO
[2018-05-01 10:01] LABS: INTERNATIONAL NORM RATIO 1.1 (2.0-3.5)
[2018-05-01 10:11] LABS: ALBUMIN 2.6 gm/dl (3.1-4.5); CREATININE 4.01 mg/dL (0.70-1.30); HEMATOCRIT 28.2 % (42.0-52.0); HEMOGLOBIN 8.4 g/dl (14.0-18.0); MEAN CELL VOLUME 74.6 fl (80.0-94.0); MEAN CORPUSCULAR HGB 22.2 pg (27.0-31.0); MEAN CORPUSCULAR HGB CONC 29.8 g/dl (33.0-37.0); MEAN PLATELET VOLUME 10.5 fl (9.6-12.3); PLATELET COUNT AUTOMATED 273 10*3/uL (130-400); POTASSIUM 4.7 mmol/L (3.5-5.1); RED BLOOD COUNT 3.78 10*6/uL (4.50-5.90); RED CELL DISTRI WIDTH 22.2 % (0-14.5); TOTAL PROTEIN 8.3 gm/dL (6.4-8.2)
[2018-05-01 10:12] LABS: BILIRUBIN, DIRECT 0.4 mg/dL (0.0-0.2)
[2018-05-01 11:01] LABS: MICROCYTOSIS SLIGHT; OVALOCYTES FEW; PLATELET SUFFICIENCY NORMAL (NORMAL); POLYCHROMASIA SLIGHT; TOTAL CELLS COUNTED 100 #CELLS
[2018-05-05 17:11] LABS: CMV QNT Negative (Negative)
== END | disposition home or self-care (01) ==
LOC: LAB 09:17
PROVIDERS: Transplant Surgery
DX: Z48.23 Encounter for aftercare following liver transplant (principal); Z94.4 Liver transplant status

== ENCOUNTER → 2018-05-13 | Outpatient (CLI) | payer MEDICARE ==
[~2018-05-13] MED LIST changes: +ASPIRIN CHEWABL81 MG PO; +COLACE100 MG PO; +Lopressor25 MG PO; +METOCLOPRAMIDE5 MG PO; +PROTONIX TR40 M1 PO; +SEPTDS PO; +SIROLIMUS1 MG PO
[2018-05-13 10:35] LABS: ALBUMIN 2.2 gm/dl (3.1-4.5); BILIRUBIN, DIRECT 0.4 mg/dL (0.0-0.2); CREATININE 5.24 mg/dL (0.70-1.30); PHOSPHOROUS 6.5 mg/dL (2.5-4.9); POTASSIUM 5.3 mmol/L (3.5-5.1); TOTAL PROTEIN 8.9 gm/dL (6.4-8.2)
[2018-05-13 10:44] LABS: HEMATOCRIT 26.3 % (42.0-52.0); HEMOGLOBIN 7.5 g/dl (14.0-18.0); MEAN CORPUSCULAR HGB 22.5 pg (27.0-31.0); MEAN CORPUSCULAR HGB CONC 28.5 g/dl (33.0-37.0); MEAN PLATELET VOLUME 11.2 fl (9.6-12.3); PLATELET COUNT AUTOMATED 519 10*3/uL (130-400); RED BLOOD COUNT 3.33 10*6/uL (4.50-5.90); RED CELL DISTRI WIDTH 26.2 % (0-14.5); WHITE BLOOD COUNT 16.2 10*3/uL (4.8-10.8)
[2018-05-13 10:47] LABS: INTERNATIONAL NORM RATIO 1.1 (2.0-3.5)
[2018-05-13 11:10] LABS: BURR CELLS FEW; MICROCYTOSIS SLIGHT; OVALOCYTES FEW; PLATELET SUFFICIENCY HIGH (NORMAL); POLYCHROMASIA SLIGHT; TOTAL CELLS COUNTED 100 #CELLS
[2018-05-16 10:05] LABS: CMV QNT Negative (Negative)
== END | disposition home or self-care (01) ==
LOC: LAB 09:21
PROVIDERS: Transplant Surgery
DX: Z94.4 Liver transplant status (principal)

== ENCOUNTER → 2018-05-27 | Outpatient (CLI) | payer MEDICARE ==
[~2018-05-27] MED LIST changes: -ASPIRIN CHEWABL81 MG PO; -COLACE100 MG PO; -Lopressor25 MG PO; -METOCLOPRAMIDE5 MG PO; -PROTONIX TR40 M1 PO; -SEPTDS PO; -SIROLIMUS1 MG PO
[2018-05-27 10:22] LABS: BASO % 0.3 % (0.0-1.0); EOS # 0.1 10*3/uL (0.0-0.4); HEMATOCRIT 29.9 % (42.0-52.0); HEMOGLOBIN 8.9 g/dl (14.0-18.0); LYMPH % 21.2 % (27.0-41.0); MEAN CELL VOLUME 80.6 fl (80.0-94.0); MEAN CORPUSCULAR HGB CONC 29.8 g/dl (33.0-37.0); MEAN PLATELET VOLUME 10.2 fl (9.6-12.3); MONO # 0.6 10*3/uL (0.1-1.0); MONO % 6.7 % (3.0-9.0); NEUT # 6.6 10*3/uL (2.3-7.9); NEUT % 70.4 % (47.0-73.0); PLATELET COUNT AUTOMATED 289 10*3/uL (130-400); RED BLOOD COUNT 3.71 10*6/uL (4.50-5.90); RED CELL DISTRI WIDTH 23.4 % (0-14.5); WHITE BLOOD COUNT 9.4 10*3/uL (4.8-10.8)
[2018-05-27 10:40] LABS: ALBUMIN 2.1 gm/dl (3.1-4.5); BILIRUBIN, DIRECT 0.2 mg/dL (0.0-0.2); CREATININE 4.34 mg/dL (0.70-1.30); PHOSPHOROUS 4.5 mg/dL (2.5-4.9); POTASSIUM 3.9 mmol/L (3.5-5.1); TOTAL PROTEIN 9.3 gm/dL (6.4-8.2)
== END | disposition home or self-care (01) ==
LOC: LAB 09:38
PROVIDERS: Transplant Surgery
DX: Z48.23 Encounter for aftercare following liver transplant (principal); Z94.4 Liver transplant status

== ENCOUNTER → 2018-06-03 | Outpatient (CLI) | payer MEDICARE ==
[~2018-06-03] MED LIST changes: +ASPIRIN CHEWABL81 MG PO; +COLACE100 MG PO; +CYCLOSPORINE100 M1 PO; +FLOMAX0.4 MG PO; +Lopressor25 MG PO; +METOCLOPRAMIDE5 MG PO; +PROTONIX TR40 M1 PO; +SEPTDS PO; +SIROLIMUS1 MG PO
[2018-06-03 09:19] LABS: BASO % 0.2 % (0.0-1.0); EOS # 0.1 10*3/uL (0.0-0.4); EOS % 0.8 % (1.0-4.0); HEMATOCRIT 30.4 % (42.0-52.0); HEMOGLOBIN 8.8 g/dl (14.0-18.0); LYMPH # 2.6 10*3/uL (1.3-4.4); LYMPH % 31.1 % (27.0-41.0); MEAN CORPUSCULAR HGB 23.2 pg (27.0-31.0); MEAN CORPUSCULAR HGB CONC 28.9 g/dl (33.0-37.0); MEAN PLATELET VOLUME 10.4 fl (9.6-12.3); MONO # 0.8 10*3/uL (0.1-1.0); MONO % 9.5 % (3.0-9.0); NEUT # 4.9 10*3/uL (2.3-7.9); PLATELET COUNT AUTOMATED 490 10*3/uL (130-400); RED CELL DISTRI WIDTH 23.3 % (0-14.5); WHITE BLOOD COUNT 8.5 10*3/uL (4.8-10.8)
[2018-06-03 09:48] LABS: POTASSIUM 4.2 mmol/L (3.5-5.1)
[2018-06-03 09:58] LABS: ALBUMIN 2.2 gm/dl (3.1-4.5); BILIRUBIN, DIRECT 0.2 mg/dL (0.0-0.2); CREATININE 4.39 mg/dL (0.70-1.30); TOTAL PROTEIN 9.1 gm/dL (6.4-8.2)
[2018-06-06 17:09] LABS: CMV QNT Negative (Negative)
== END | disposition home or self-care (01) ==
PROVIDERS: Transplant Surgery
DX: Z94.4 Liver transplant status (principal)

== ENCOUNTER → 2018-06-06 | Day surgery (SDC) | payer MEDICARE ==
[~2018-06-06] VITALS: Ht 180.3 cm; Wt 67.1 kg
[~2018-06-06] MED LIST changes: -CYCLOSPORINE100 M1 PO; -FLOMAX0.4 MG PO
--- NOTE | ~2018-06-06 | O ---
[place], [place] OPERATIVE NOTE NAME: RORO FERNANDEZ UNIT #: [id number] ROOM: DOCTOR: EUGENE WOLFF MD BIRTHDATE: [birth year] DOS: 06/06/2018 INDICATIONS: A 68-year-old patient who presented with chief complaint of colonic screening for renal transplant possibility. ALLERGIES: No known medication. PAST MEDICAL HISTORY: Associated with postoperative cholecystectomy. COMPLICATIONS: 1. Eventually liver transplant 2. Renal failure. ALLERGIES: No known medication. FAMILY HISTORY: Noncontributory. PAST SURGICAL HISTORY: Right leg prosthesis. ALLERGIES: No known medication. SOCIAL HISTORY: Nonsmoker, nonalcohol consumer. PROCEDURE: Today's procedure part of investigation is colonoscopy. PREMEDICATION: Propofol. SCOPE: Olympus folding colonoscope 10L video. REPORT: After putting the patient in left lateral position and application of lubricant to the scope, the scope was introduced. Thereafter, under direct visualization, I advanced through the length of colon without difficulty. Colon mucosa and vascularity carefully examined. Scattered diverticulosis was noticed. Thus sigmoid colon polypoid lesion with piecemeal polypectomy was removed. Base of the cecum explored, appendiceal orifice identified, ileocecal valve was defined photographed. Under circumferential fashion, scope was withdrawn from ascending, transverse, descending colon. There was no colonic polyp or lesions of concern. Air was suctioned out. The patient was extubated, tolerated the procedure well. IMPRESSION: Sigmoid colon polypoid lesion status post piecemeal polypectomy scattered diverticulosis. PLAN AND DISCUSSION: High fiber fruit diet. ACTIVITY: Ad sulema. FOLLOWUP: Routinely with you in office, p.r.n. visit with us in GI Clinic. Colonoscopy is cleared for purpose of renal transplant. [place], [place] OPERATIVE NOTE NAME: RORO FERNANDEZ UNIT #: [id number] ROOM: DOCTOR: EUGENE WOLFF MD BIRTHDATE: [birth year] Thank you very much indeed. EUGENE WOLFF MD CM:OPRECORD:OPERATIVE NOTE [id number] EUGENE WOLFF MD 06/06/18 1147 interface
[2018-06-06 10:06] VITALS: BP 116/74
[2018-06-06 11:19] VITALS: BP 105/67
[2018-06-06 11:34] VITALS: BP 103/67
[2018-06-06 11:49] VITALS: BP 120/69
== END ==
LOC: SDC 06-03 08:00
DX: Z12.11 Encounter for screening for malignant neoplasm of colon (principal); D12.5 Benign neoplasm of sigmoid colon; I10 Essential (primary) hypertension; K57.90 Diverticulosis of intestine, part unspecified, without perforation or abscess without bleeding; Z96.651 Presence of right artificial knee joint; Z96.641 Presence of right artificial hip joint

== ENCOUNTER → 2018-07-01 | Outpatient (CLI) | payer MEDICARE ==
[2018-07-01 09:21] LABS: BASO % 0.3 % (0.0-1.0); EOS # 0.1 10*3/uL (0.0-0.4); EOS % 2.1 % (1.0-4.0); HEMATOCRIT 27.9 % (42.0-52.0); HEMOGLOBIN 8.2 g/dl (14.0-18.0); LYMPH # 2.2 10*3/uL (1.3-4.4); LYMPH % 35.2 % (27.0-41.0); MEAN CELL VOLUME 78.4 fl (80.0-94.0); MEAN CORPUSCULAR HGB CONC 29.4 g/dl (33.0-37.0); MEAN PLATELET VOLUME 10.2 fl (9.6-12.3); MONO # 0.6 10*3/uL (0.1-1.0); MONO % 9.4 % (3.0-9.0); NEUT # 3.3 10*3/uL (2.3-7.9); NEUT % 52.7 % (47.0-73.0); PLATELET COUNT AUTOMATED 306 10*3/uL (130-400); RED BLOOD COUNT 3.56 10*6/uL (4.50-5.90); RED CELL DISTRI WIDTH 21.7 % (0-14.5); WHITE BLOOD COUNT 6.2 10*3/uL (4.8-10.8)
[2018-07-01 09:37] LABS: ALBUMIN 2.3 gm/dl (3.1-4.5); BILIRUBIN, DIRECT 0.1 mg/dL (0.0-0.2); CREATININE 3.49 mg/dL (0.70-1.30); PHOSPHOROUS 4.3 mg/dL (2.5-4.9); POTASSIUM 3.9 mmol/L (3.5-5.1); TOTAL PROTEIN 8.8 gm/dL (6.4-8.2)
[2018-07-07 18:05] LABS: CMV QNT Negative (Negative)
== END | disposition home or self-care (01) ==
LOC: LAB 08:37
PROVIDERS: Transplant Surgery
DX: Z94.4 Liver transplant status (principal)

== ENCOUNTER → 2018-07-29 | Outpatient (CLI) | payer MEDICARE ==
[~2018-07-29] MED LIST changes: +CYCLOSPORINE100 M1 PO; +FLOMAX0.4 MG PO
[2018-07-29 10:02] LABS: BASO % 0.3 % (0.0-1.0); EOS # 0.1 10*3/uL (0.0-0.4); EOS % 1.1 % (1.0-4.0); HEMATOCRIT 29.5 % (42.0-52.0); HEMOGLOBIN 8.7 g/dl (14.0-18.0); LYMPH # 2.2 10*3/uL (1.3-4.4); LYMPH % 34.6 % (27.0-41.0); MEAN CELL VOLUME 77.2 fl (80.0-94.0); MEAN CORPUSCULAR HGB 22.8 pg (27.0-31.0); MEAN CORPUSCULAR HGB CONC 29.5 g/dl (33.0-37.0); MEAN PLATELET VOLUME 10.6 fl (9.6-12.3); MONO # 0.4 10*3/uL (0.1-1.0); MONO % 6.9 % (3.0-9.0); NEUT # 3.6 10*3/uL (2.3-7.9); NEUT % 56.6 % (47.0-73.0); PLATELET COUNT AUTOMATED 279 10*3/uL (130-400); RED BLOOD COUNT 3.82 10*6/uL (4.50-5.90); RED CELL DISTRI WIDTH 18.8 % (0-14.5); WHITE BLOOD COUNT 6.4 10*3/uL (4.8-10.8)
[2018-07-29 10:18] LABS: ALBUMIN 2.5 gm/dl (3.1-4.5); BILIRUBIN, DIRECT 0.1 mg/dL (0.0-0.2); CREATININE 3.79 mg/dL (0.70-1.30); PHOSPHOROUS 3.7 mg/dL (2.5-4.9); TOTAL PROTEIN 9.4 gm/dL (6.4-8.2)
[2018-08-01 12:11] LABS: CMV QNT Negative (Negative)
== END | disposition home or self-care (01) ==
LOC: LAB 09:13
PROVIDERS: Transplant Surgery
DX: T86.20 Unspecified complication of heart transplant (principal); Z94.4 Liver transplant status; Z76.82 Awaiting organ transplant status

== ENCOUNTER → 2018-09-08 | Outpatient (CLI) | payer MEDICARE | END | disposition home or self-care (01) | LOC: LAB 15:34 | DX: D64.9 Anemia, unspecified (principal); T86.40 Unspecified complication of liver transplant ==

== ENCOUNTER → 2019-01-06 | Outpatient (CLI) | payer MEDICARE ==
[2019-01-06 09:50] LABS: BASO % 0.5 % (0.0-1.0); EOS # 0.1 10*3/uL (0.0-0.4); EOS % 1.4 % (1.0-4.0); HEMATOCRIT 40.3 % (42.0-52.0); HEMOGLOBIN 12.6 g/dl (14.0-18.0); LYMPH # 1.9 10*3/uL (1.3-4.4); MEAN CELL VOLUME 88.4 fl (80.0-94.0); MEAN CORPUSCULAR HGB 27.6 pg (27.0-31.0); MEAN CORPUSCULAR HGB CONC 31.3 g/dl (33.0-37.0); MEAN PLATELET VOLUME 11.5 fl (9.6-12.3); MONO # 0.6 10*3/uL (0.1-1.0); MONO % 7.9 % (3.0-9.0); NEUT % 65.1 % (47.0-73.0); PLATELET COUNT AUTOMATED 227 10*3/uL (130-400); RED BLOOD COUNT 4.56 10*6/uL (4.50-5.90); RED CELL DISTRI WIDTH 21.5 % (0-14.5); WHITE BLOOD COUNT 7.7 10*3/uL (4.8-10.8)
[2019-01-06 10:05] LABS: ALBUMIN 3.1 gm/dl (3.1-4.5); CREATININE 3.64 mg/dL (0.70-1.30); PHOSPHOROUS 3.9 mg/dL (2.5-4.9); POTASSIUM 4.4 mmol/L (3.5-5.1)
[2019-01-06 11:01] LABS: FERRITIN 1080.3 ng/mL (22.0-322.0); PTH INTACT 89.9 pg/mL (18.5-88.0); VITAMIN D, 25-HYDROXY 20.1 ng/mL (30-100)
== END | disposition home or self-care (01) ==
LOC: LAB 08:43
PROVIDERS: Internal Medicine Nephrology
DX: N25.81 Secondary hyperparathyroidism of renal origin (principal); D63.1 Anemia in chronic kidney disease; N18.4 Chronic kidney disease, stage 4 (severe)

== ENCOUNTER → 2019-01-09 | Outpatient (CLI) | payer MEDICARE ==
[2019-01-09 09:32] LABS: BASO % 0.4 % (0.0-1.0); EOS # 0.1 10*3/uL (0.0-0.4); EOS % 1.4 % (1.0-4.0); HEMOGLOBIN 12.4 g/dl (14.0-18.0); LYMPH # 1.8 10*3/uL (1.3-4.4); LYMPH % 26.1 % (27.0-41.0); MEAN CELL VOLUME 89.3 fl (80.0-94.0); MEAN CORPUSCULAR HGB 27.7 pg (27.0-31.0); MONO # 0.5 10*3/uL (0.1-1.0); MONO % 7.7 % (3.0-9.0); NEUT # 4.5 10*3/uL (2.3-7.9); PLATELET COUNT AUTOMATED 206 10*3/uL (130-400); RED BLOOD COUNT 4.48 10*6/uL (4.50-5.90); RED CELL DISTRI WIDTH 20.9 % (0-14.5)
[2019-01-09 09:50] LABS: POTASSIUM 4.6 mmol/L (3.5-5.1)
[2019-01-09 09:56] LABS: BILIRUBIN, DIRECT 0.3 mg/dL (0.0-0.2); CREATININE 3.58 mg/dL (0.70-1.30); PHOSPHOROUS 4.5 mg/dL (2.5-4.9); TOTAL PROTEIN 9.1 gm/dL (6.4-8.2)
[2019-01-12 15:06] LABS: CYCLOSPORINE, BLOOD 201 ng/mL (100-400)
== END | disposition home or self-care (01) ==
LOC: LAB 08:42
PROVIDERS: Transplant Surgery
DX: T86.20 Unspecified complication of heart transplant (principal); Z94.4 Liver transplant status

== ENCOUNTER → 2019-01-12 | Outpatient (CLI) | payer MEDICARE | END | disposition home or self-care (01) | LOC: LAB 09:24 | DX: N18.4 Chronic kidney disease, stage 4 (severe) (principal); N25.81 Secondary hyperparathyroidism of renal origin; D63.1 Anemia in chronic kidney disease ==

== ENCOUNTER → 2019-03-05 | Outpatient (CLI) | payer MEDICARE ==
[2019-03-05 09:35] LABS: BASO % 0.3 % (0.0-1.0); EOS # 0.1 10*3/uL (0.0-0.4); EOS % 0.6 % (1.0-4.0); HEMATOCRIT 42.9 % (42.0-52.0); HEMOGLOBIN 13.8 g/dl (14.0-18.0); LYMPH # 1.7 10*3/uL (1.3-4.4); LYMPH % 18.3 % (27.0-41.0); MEAN CELL VOLUME 91.7 fl (80.0-94.0); MEAN CORPUSCULAR HGB 29.5 pg (27.0-31.0); MEAN CORPUSCULAR HGB CONC 32.2 g/dl (33.0-37.0); MEAN PLATELET VOLUME 11.1 fl (9.6-12.3); MONO # 0.7 10*3/uL (0.1-1.0); MONO % 7.1 % (3.0-9.0); NEUT # 6.9 10*3/uL (2.3-7.9); NEUT % 73.3 % (47.0-73.0); PLATELET COUNT AUTOMATED 205 10*3/uL (130-400); RED BLOOD COUNT 4.68 10*6/uL (4.50-5.90); RED CELL DISTRI WIDTH 16.2 % (0-14.5); WHITE BLOOD COUNT 9.5 10*3/uL (4.8-10.8)
[2019-03-05 10:10] LABS: ALBUMIN 3.1 gm/dl (3.1-4.5); BILIRUBIN, DIRECT 0.3 mg/dL (0.0-0.2); CREATININE 3.28 mg/dL (0.70-1.30); POTASSIUM 4.2 mmol/L (3.5-5.1)
[2019-03-05 10:23] LABS: TOTAL PROTEIN 8.6 gm/dL (6.4-8.2)
[2019-03-06 15:04] LABS: CYCLOSPORINE, BLOOD 117 ng/mL (100-400)
== END | disposition home or self-care (01) ==
LOC: LAB 09:15
PROVIDERS: Transplant Surgery
DX: D84.9 Immunodeficiency, unspecified (principal); Z94.4 Liver transplant status

== ENCOUNTER → 2019-04-29 | Outpatient (CLI) | payer MEDICARE, OTHER ==
[2019-04-29 09:06] LABS: BILIRUBIN 3+ (NEGATIVE); BLOOD 1+ (NEGATIVE); CLARITY CLOUDY (CLEAR); COLOR YELLOW (YELLOW); GLUCOSE NEGATIVE (NEGATIVE); KETONE NEGATIVE (NEGATIVE); LEUKO ESTERASE 2+ (NEGATIVE); NITRITE NEGATIVE (NEGATIVE); PH 5.5 (5.0-9.0); SPECIFIC GRAVITY 1.025 (1.005-1.030)
[2019-04-29 09:14] LABS: BASO % 0.3 % (0.0-1.0); EOS # 0.1 10*3/uL (0.0-0.4); EOS % 0.9 % (1.0-4.0); HEMATOCRIT 40.7 % (42.0-52.0); HEMOGLOBIN 13.1 g/dl (14.0-18.0); LYMPH # 1.5 10*3/uL (1.3-4.4); LYMPH % 14.8 % (27.0-41.0); MEAN CELL VOLUME 91.9 fl (80.0-94.0); MEAN CORPUSCULAR HGB 29.6 pg (27.0-31.0); MEAN CORPUSCULAR HGB CONC 32.2 g/dl (33.0-37.0); MEAN PLATELET VOLUME 12.4 fl (9.6-12.3); MONO # 0.9 10*3/uL (0.1-1.0); MONO % 8.7 % (3.0-9.0); NEUT # 7.3 10*3/uL (2.3-7.9); NEUT % 73.1 % (47.0-73.0); PLATELET COUNT AUTOMATED 202 10*3/uL (130-400); RED BLOOD COUNT 4.43 10*6/uL (4.50-5.90); RED CELL DISTRI WIDTH 16.5 % (0-14.5)
[2019-04-29 09:20] LABS: BACTERIA 3+; WBC 41-50 wbc/hpf (0-5)
[2019-04-29 09:30] LABS: ALBUMIN 2.6 gm/dl (3.1-4.5); BILIRUBIN, DIRECT 9.5 mg/dL (0.0-0.2); CREATININE 3.31 mg/dL (0.70-1.30); PHOSPHOROUS 2.8 mg/dL (2.5-4.9); POTASSIUM 3.6 mmol/L (3.5-5.1); TOTAL PROTEIN 8.2 gm/dL (6.4-8.2)
[2019-04-29 09:32] LABS: ALBUMIN 2.5 gm/dl (3.1-4.5); POTASSIUM 3.6 mmol/L (3.5-5.1)
[2019-04-29 09:34] LABS: CREATININE 3.31 mg/dL (0.70-1.30); PHOSPHOROUS 2.8 mg/dL (2.5-4.9)
[2019-04-29 14:31] LABS: VITAMIN D, 25-HYDROXY 13.2 ng/mL (30-100)
[2019-04-29 14:32] LABS: PTH INTACT 131.6 pg/mL (18.5-88.0)
[2019-04-29 17:06] LABS: FERRITIN 2106.3 ng/mL (22.0-322.0)
[2019-04-30 09:05] LABS: CYCLOSPORINE, BLOOD 92 ng/mL (100-400)
== END | disposition home or self-care (01) ==
LOC: LAB 08:27
PROVIDERS: Internal Medicine Nephrology; Transplant Surgery
DX: N25.81 Secondary hyperparathyroidism of renal origin (principal); R82.998 Other abnormal findings in urine; D63.1 Anemia in chronic kidney disease; N18.5 Chronic kidney disease, stage 5; N17.9 Acute kidney failure, unspecified; Z94.4 Liver transplant status

== ENCOUNTER → 2019-05-05 | Outpatient (CLI) | payer MEDICARE, OTHER ==
[2019-05-05 08:34] LABS: BASO % 0.4 % (0.0-1.0); EOS # 0.1 10*3/uL (0.0-0.4); EOS % 1.2 % (1.0-4.0); HEMATOCRIT 39.6 % (42.0-52.0); HEMOGLOBIN 12.7 g/dl (14.0-18.0); LYMPH # 2.3 10*3/uL (1.3-4.4); LYMPH % 24.6 % (27.0-41.0); MEAN CELL VOLUME 92.7 fl (80.0-94.0); MEAN CORPUSCULAR HGB 29.7 pg (27.0-31.0); MEAN CORPUSCULAR HGB CONC 32.1 g/dl (33.0-37.0); MEAN PLATELET VOLUME 11.6 fl (9.6-12.3); MONO # 0.6 10*3/uL (0.1-1.0); MONO % 6.9 % (3.0-9.0); NEUT % 65.1 % (47.0-73.0); PLATELET COUNT AUTOMATED 323 10*3/uL (130-400); RED BLOOD COUNT 4.27 10*6/uL (4.50-5.90); RED CELL DISTRI WIDTH 16.7 % (0-14.5); WHITE BLOOD COUNT 9.2 10*3/uL (4.8-10.8)
[2019-05-05 08:54] LABS: ALBUMIN 2.6 gm/dl (3.1-4.5); BILIRUBIN, DIRECT 5.7 mg/dL (0.0-0.2); CREATININE 3.11 mg/dL (0.70-1.30); TOTAL PROTEIN 8.5 gm/dL (6.4-8.2)
[2019-05-06 15:04] LABS: CYCLOSPORINE, BLOOD 313 ng/mL (100-400)
== END | disposition home or self-care (01) ==
LOC: LAB 08:05
PROVIDERS: Surgery
DX: K71.9 Toxic liver disease, unspecified (principal)

== ENCOUNTER → 2019-05-12 | Outpatient (CLI) | payer MEDICARE, OTHER ==
[2019-05-12 08:57] LABS: BASO # 0.1 10*3/uL (0.0-0.1); BASO % 0.8 % (0.0-1.0); EOS # 0.1 10*3/uL (0.0-0.4); EOS % 1.7 % (1.0-4.0); HEMATOCRIT 39.7 % (42.0-52.0); HEMOGLOBIN 12.4 g/dl (14.0-18.0); LYMPH # 2.1 10*3/uL (1.3-4.4); LYMPH % 27.6 % (27.0-41.0); MEAN CELL VOLUME 95.7 fl (80.0-94.0); MEAN CORPUSCULAR HGB 29.9 pg (27.0-31.0); MEAN CORPUSCULAR HGB CONC 31.2 g/dl (33.0-37.0); MEAN PLATELET VOLUME 11.5 fl (9.6-12.3); MONO # 0.7 10*3/uL (0.1-1.0); MONO % 8.7 % (3.0-9.0); NEUT # 4.7 10*3/uL (2.3-7.9); NEUT % 60.8 % (47.0-73.0); PLATELET COUNT AUTOMATED 294 10*3/uL (130-400); RED BLOOD COUNT 4.15 10*6/uL (4.50-5.90); RED CELL DISTRI WIDTH 16.2 % (0-14.5); WHITE BLOOD COUNT 7.7 10*3/uL (4.8-10.8)
[2019-05-12 09:09] LABS: CREATININE 3.37 mg/dL (0.70-1.30); POTASSIUM 4.5 mmol/L (3.5-5.1); TOTAL PROTEIN 8.8 gm/dL (6.4-8.2)
[2019-05-12 09:15] LABS: ALBUMIN 2.7 gm/dl (3.1-4.5); BILIRUBIN, DIRECT 3.2 mg/dL (0.0-0.2)
[2019-05-13 12:07] LABS: CYCLOSPORINE, BLOOD 364 ng/mL (100-400)
== END | disposition home or self-care (01) ==
LOC: LAB 08:08
PROVIDERS: Transplant Surgery
DX: D84.9 Immunodeficiency, unspecified (principal); Z94.4 Liver transplant status

== ENCOUNTER → 2019-07-02 | Outpatient (CLI) | payer MEDICARE, OTHER ==
[2019-07-02 09:41] LABS: BASO % 0.4 % (0.0-1.0); EOS # 0.1 10*3/uL (0.0-0.4); EOS % 1.9 % (1.0-4.0); HEMATOCRIT 43.7 % (42.0-52.0); HEMOGLOBIN 13.9 g/dl (14.0-18.0); LYMPH # 1.6 10*3/uL (1.3-4.4); LYMPH % 20.8 % (27.0-41.0); MEAN CELL VOLUME 92.4 fl (80.0-94.0); MEAN CORPUSCULAR HGB 29.4 pg (27.0-31.0); MEAN CORPUSCULAR HGB CONC 31.8 g/dl (33.0-37.0); MEAN PLATELET VOLUME 11.6 fl (9.6-12.3); MONO # 0.6 10*3/uL (0.1-1.0); NEUT # 5.2 10*3/uL (2.3-7.9); NEUT % 68.6 % (47.0-73.0); PLATELET COUNT AUTOMATED 218 10*3/uL (130-400); RED BLOOD COUNT 4.73 10*6/uL (4.50-5.90); RED CELL DISTRI WIDTH 14.6 % (0-14.5); WHITE BLOOD COUNT 7.5 10*3/uL (4.8-10.8)
[2019-07-02 10:09] LABS: ALBUMIN 2.9 gm/dl (3.1-4.5); BILIRUBIN, DIRECT 1.1 mg/dL (0.0-0.2); CREATININE 3.39 mg/dL (0.70-1.30); PHOSPHOROUS 3.7 mg/dL (2.5-4.9); POTASSIUM 4.4 mmol/L (3.5-5.1); TOTAL PROTEIN 8.9 gm/dL (6.4-8.2)
[2019-07-02 10:13] LABS: IRON 58 ug/dL (65-175); TOTAL IRON BINDING CAPACITY 200 ug/dl (250-450)
[2019-07-02 10:33] LABS: FERRITIN 1212.2 ng/mL (22.0-322.0)
[2019-07-02 10:34] LABS: PTH INTACT 115.9 pg/mL (18.5-88.0)
[2019-07-03 13:03] LABS: CYCLOSPORINE, BLOOD 639 ng/mL (100-400)
== END | disposition home or self-care (01) ==
LOC: LAB 08:36
PROVIDERS: Internal Medicine Nephrology; Transplant Surgery
DX: N25.81 Secondary hyperparathyroidism of renal origin (principal); N18.4 Chronic kidney disease, stage 4 (severe); D63.1 Anemia in chronic kidney disease; Z94.4 Liver transplant status

== ENCOUNTER → 2019-07-07 | Outpatient (CLI) | payer MEDICARE, OTHER ==
[2019-07-07 09:13] LABS: BASO % 0.3 % (0.0-1.0); EOS # 0.2 10*3/uL (0.0-0.4); EOS % 1.8 % (1.0-4.0); HEMATOCRIT 43.7 % (42.0-52.0); HEMOGLOBIN 13.8 g/dl (14.0-18.0); LYMPH # 2.5 10*3/uL (1.3-4.4); LYMPH % 26.1 % (27.0-41.0); MEAN CELL VOLUME 93.4 fl (80.0-94.0); MEAN CORPUSCULAR HGB 29.5 pg (27.0-31.0); MEAN CORPUSCULAR HGB CONC 31.6 g/dl (33.0-37.0); MEAN PLATELET VOLUME 11.6 fl (9.6-12.3); MONO # 0.7 10*3/uL (0.1-1.0); MONO % 7.8 % (3.0-9.0); NEUT # 6.1 10*3/uL (2.3-7.9); NEUT % 63.8 % (47.0-73.0); PLATELET COUNT AUTOMATED 247 10*3/uL (130-400); RED BLOOD COUNT 4.68 10*6/uL (4.50-5.90); RED CELL DISTRI WIDTH 14.5 % (0-14.5); WHITE BLOOD COUNT 9.5 10*3/uL (4.8-10.8)
[2019-07-07 09:32] LABS: POTASSIUM 4.6 mmol/L (3.5-5.1); TOTAL PROTEIN 8.9 gm/dL (6.4-8.2)
[2019-07-07 09:36] LABS: BILIRUBIN, DIRECT 1.2 mg/dL (0.0-0.2); CREATININE 3.3 mg/dL (0.70-1.30); PHOSPHOROUS 3.7 mg/dL (2.5-4.9)
[2019-07-08 17:07] LABS: CYCLOSPORINE, BLOOD 588 ng/mL (100-400)
== END | disposition home or self-care (01) ==
LOC: LAB 08:53
PROVIDERS: Transplant Surgery
DX: Z94.4 Liver transplant status (principal)

== ENCOUNTER → 2019-07-14 | Outpatient (CLI) | payer MEDICARE, OTHER ==
[2019-07-14 09:30] LABS: BASO % 0.4 % (0.0-1.0); EOS # 0.2 10*3/uL (0.0-0.4); EOS % 1.8 % (1.0-4.0); HEMATOCRIT 44.6 % (42.0-52.0); HEMOGLOBIN 14.2 g/dl (14.0-18.0); LYMPH # 2.3 10*3/uL (1.3-4.4); LYMPH % 23.2 % (27.0-41.0); MEAN CELL VOLUME 94.1 fl (80.0-94.0); MEAN CORPUSCULAR HGB CONC 31.8 g/dl (33.0-37.0); MEAN PLATELET VOLUME 11.9 fl (9.6-12.3); MONO # 0.7 10*3/uL (0.1-1.0); MONO % 6.8 % (3.0-9.0); NEUT # 6.8 10*3/uL (2.3-7.9); NEUT % 67.5 % (47.0-73.0); PLATELET COUNT AUTOMATED 264 10*3/uL (130-400); RED BLOOD COUNT 4.74 10*6/uL (4.50-5.90); RED CELL DISTRI WIDTH 14.6 % (0-14.5); WHITE BLOOD COUNT 10.1 10*3/uL (4.8-10.8)
[2019-07-14 09:58] LABS: ALBUMIN 3.1 gm/dl (3.1-4.5); BILIRUBIN, DIRECT 0.9 mg/dL (0.0-0.2); CREATININE 3.29 mg/dL (0.70-1.30); POTASSIUM 4.5 mmol/L (3.5-5.1); TOTAL PROTEIN 9.2 gm/dL (6.4-8.2)
[2019-07-15 14:07] LABS: CYCLOSPORINE, BLOOD 638 ng/mL (100-400)
== END | disposition home or self-care (01) ==
LOC: LAB 08:50
PROVIDERS: Transplant Surgery
DX: D84.9 Immunodeficiency, unspecified (principal); Z94.4 Liver transplant status

== ENCOUNTER → 2019-07-24 | Outpatient (CLI) | payer MEDICARE, OTHER ==
[2019-07-24 09:42] LABS: BASO % 0.4 % (0.0-1.0); EOS # 0.2 10*3/uL (0.0-0.4); EOS % 2.3 % (1.0-4.0); HEMATOCRIT 43.7 % (42.0-52.0); HEMOGLOBIN 13.6 g/dl (14.0-18.0); LYMPH # 2.4 10*3/uL (1.3-4.4); LYMPH % 26.8 % (27.0-41.0); MEAN CELL VOLUME 95.4 fl (80.0-94.0); MEAN CORPUSCULAR HGB 29.7 pg (27.0-31.0); MEAN CORPUSCULAR HGB CONC 31.1 g/dl (33.0-37.0); MEAN PLATELET VOLUME 11.9 fl (9.6-12.3); MONO # 0.7 10*3/uL (0.1-1.0); MONO % 7.6 % (3.0-9.0); NEUT # 5.6 10*3/uL (2.3-7.9); NEUT % 62.6 % (47.0-73.0); PLATELET COUNT AUTOMATED 206 10*3/uL (130-400); RED BLOOD COUNT 4.58 10*6/uL (4.50-5.90); RED CELL DISTRI WIDTH 14.5 % (0-14.5)
[2019-07-24 10:12] LABS: ALBUMIN 3.2 gm/dl (3.1-4.5); BILIRUBIN, DIRECT 0.6 mg/dL (0.0-0.2); CREATININE 3.21 mg/dL (0.70-1.30); PHOSPHOROUS 3.8 mg/dL (2.5-4.9); TOTAL PROTEIN 8.8 gm/dL (6.4-8.2)
[2019-07-27 14:07] LABS: CYCLOSPORINE, BLOOD 252 ng/mL (100-400)
== END | disposition home or self-care (01) ==
LOC: LAB 08:47
PROVIDERS: Transplant Surgery
DX: Z94.4 Liver transplant status (principal)

== ENCOUNTER → 2019-12-11 | Outpatient (CLI) | payer MEDICARE, OTHER ==
[2019-12-11 08:40] LABS: BASO # 0.1 10*3/uL (0.0-0.1); BASO % 0.6 % (0.0-1.0); EOS # 0.2 10*3/uL (0.0-0.4); EOS % 1.6 % (1.0-4.0); HEMATOCRIT 44.6 % (42.0-52.0); LYMPH # 2.3 10*3/uL (1.3-4.4); LYMPH % 23.3 % (27.0-41.0); MEAN CELL VOLUME 95.7 fl (80.0-94.0); MEAN CORPUSCULAR HGB CONC 31.4 g/dl (33.0-37.0); MEAN PLATELET VOLUME 11.3 fl (9.6-12.3); MONO # 0.8 10*3/uL (0.1-1.0); MONO % 8.1 % (3.0-9.0); NEUT # 6.4 10*3/uL (2.3-7.9); PLATELET COUNT AUTOMATED 221 10*3/uL (130-400); RED BLOOD COUNT 4.66 10*6/uL (4.50-5.90); RED CELL DISTRI WIDTH 14.4 % (0-14.5); WHITE BLOOD COUNT 9.7 10*3/uL (4.8-10.8)
[2019-12-11 08:58] LABS: ALBUMIN 3.4 gm/dl (3.1-4.5); BILIRUBIN, DIRECT 0.3 mg/dL (0.0-0.2); CREATININE 3.08 mg/dL (0.70-1.30); POTASSIUM 4.7 mmol/L (3.5-5.1); TOTAL IRON BINDING CAPACITY 180 ug/dl (250-450); TOTAL PROTEIN 8.8 gm/dL (6.4-8.2)
[2019-12-11 09:03] LABS: IRON 68 ug/dL (65-175)
[2019-12-11 09:59] LABS: FERRITIN 1075.6 ng/mL (22.0-322.0)
[2019-12-11 10:00] LABS: PTH INTACT 234.4 pg/mL (18.5-88.0)
[2019-12-14 15:06] LABS: CYCLOSPORINE, BLOOD 254 ng/mL (100-400)
== END | disposition home or self-care (01) ==
LOC: LAB 07:50
PROVIDERS: Internal Medicine Nephrology; Transplant Surgery
DX: N18.4 Chronic kidney disease, stage 4 (severe) (principal); D63.1 Anemia in chronic kidney disease; D84.9 Immunodeficiency, unspecified; N25.81 Secondary hyperparathyroidism of renal origin; Z94.4 Liver transplant status

== ENCOUNTER → 2020-02-17 | Outpatient (CLI) | payer MEDICARE, OTHER | END | disposition home or self-care (01) | LOC: RESCLI 01:09 | PROVIDERS: ATTEND Internal Medicine Nephrology | DX: Z94.4 Liver transplant status (principal); I10 Essential (primary) hypertension; D50.9 Iron deficiency anemia, unspecified; J98.4 Other disorders of lung; E55.9 Vitamin D deficiency, unspecified; E53.8 Deficiency of other specified B group vitamins; Z79.899 Other long term (current) drug therapy; Z98.890 Other specified postprocedural states ==

== ENCOUNTER → 2020-03-29 | Outpatient (CLI) | payer MEDICARE, OTHER ==
[2020-03-29 08:37] LABS: BASO # 0.1 10*3/uL (0.0-0.1); BASO % 0.5 % (0.0-1.0); EOS # 0.1 10*3/uL (0.0-0.4); EOS % 1.1 % (1.0-4.0); HEMATOCRIT 43.7 % (42.0-52.0); LYMPH # 2.7 10*3/uL (1.3-4.4); LYMPH % 27.2 % (27.0-41.0); MEAN CORPUSCULAR HGB 28.6 pg (27.0-31.0); MEAN CORPUSCULAR HGB CONC 31.1 g/dl (33.0-37.0); MEAN PLATELET VOLUME 11.2 fl (9.6-12.3); MONO # 0.7 10*3/uL (0.1-1.0); MONO % 7.4 % (3.0-9.0); NEUT # 6.2 10*3/uL (2.3-7.9); NEUT % 63.4 % (47.0-73.0); PLATELET COUNT AUTOMATED 244 10*3/uL (130-400); RED BLOOD COUNT 4.75 10*6/uL (4.50-5.90); RED CELL DISTRI WIDTH 14.3 % (0-14.5); WHITE BLOOD COUNT 9.8 10*3/uL (4.8-10.8)
[2020-03-29 09:09] LABS: ALBUMIN 3.3 gm/dl (3.1-4.5); CREATININE 3.07 mg/dL (0.70-1.30); POTASSIUM 4.4 mmol/L (3.5-5.1); TOTAL PROTEIN 9.1 gm/dL (6.4-8.2)
[2020-03-29 09:13] LABS: BILIRUBIN, DIRECT 0.3 mg/dL (0.0-0.2)
[2020-03-30 13:06] LABS: CYCLOSPORINE, BLOOD 174 ng/mL (100-400)
== END | disposition home or self-care (01) ==
LOC: LAB 08:16
PROVIDERS: ATTEND Transplant Surgery
DX: E84.9 Cystic fibrosis, unspecified (principal); Z94.4 Liver transplant status

== ENCOUNTER → 2020-04-25 | Outpatient (CLI) | payer MEDICARE, OTHER ==
[2020-04-25 08:46] LABS: BASO # 0.1 10*3/uL (0.0-0.1); BASO % 0.6 % (0.0-1.0); EOS # 0.1 10*3/uL (0.0-0.4); EOS % 1.4 % (1.0-4.0); LYMPH % 22.5 % (27.0-41.0); MEAN CELL VOLUME 93.6 fl (80.0-94.0); MEAN CORPUSCULAR HGB 29.1 pg (27.0-31.0); MEAN CORPUSCULAR HGB CONC 31.1 g/dl (33.0-37.0); MEAN PLATELET VOLUME 11.1 fl (9.6-12.3); MONO # 0.7 10*3/uL (0.1-1.0); MONO % 7.8 % (3.0-9.0); NEUT # 5.9 10*3/uL (2.3-7.9); NEUT % 67.4 % (47.0-73.0); PLATELET COUNT AUTOMATED 227 10*3/uL (130-400); RED CELL DISTRI WIDTH 14.8 % (0-14.5); WHITE BLOOD COUNT 8.7 10*3/uL (4.8-10.8)
[2020-04-25 09:12] LABS: ALBUMIN 3.3 gm/dl (3.1-4.5); BILIRUBIN, DIRECT 0.3 mg/dL (0.0-0.2); CREATININE 3.31 mg/dL (0.70-1.30); POTASSIUM 4.7 mmol/L (3.5-5.1); TOTAL PROTEIN 8.8 gm/dL (6.4-8.2)
== END | disposition home or self-care (01) ==
LOC: LAB 07:54
PROVIDERS: ATTEND Transplant Surgery
DX: N18.5 Chronic kidney disease, stage 5 (principal); D84.9 Immunodeficiency, unspecified; Z94.4 Liver transplant status

== ENCOUNTER → 2020-08-04 | Outpatient (CLI) | payer MEDICARE, OTHER ==
[2020-08-04 08:23] LABS: BASO % 0.5 % (0.0-1.0); EOS # 0.1 10*3/uL (0.0-0.4); EOS % 0.8 % (1.0-4.0); LYMPH # 1.9 10*3/uL (1.3-4.4); LYMPH % 21.7 % (27.0-41.0); MEAN CELL VOLUME 89.8 fl (80.0-94.0); MEAN CORPUSCULAR HGB 28.6 pg (27.0-31.0); MEAN CORPUSCULAR HGB CONC 31.9 g/dl (33.0-37.0); MEAN PLATELET VOLUME 11.1 fl (9.6-12.3); MONO # 0.6 10*3/uL (0.1-1.0); MONO % 6.9 % (3.0-9.0); NEUT # 6.2 10*3/uL (2.3-7.9); NEUT % 69.8 % (47.0-73.0); PLATELET COUNT AUTOMATED 232 10*3/uL (130-400); RED BLOOD COUNT 4.79 10*6/uL (4.50-5.90); RED CELL DISTRI WIDTH 14.5 % (0-14.5); WHITE BLOOD COUNT 8.8 10*3/uL (4.8-10.8)
[2020-08-04 09:09] LABS: BILIRUBIN, DIRECT 0.3 mg/dL (0.0-0.2)
[2020-08-04 09:14] LABS: ALBUMIN 3.4 gm/dl (3.1-4.5); CREATININE 3.41 mg/dL (0.70-1.30); POTASSIUM 4.5 mmol/L (3.5-5.1); TOTAL PROTEIN 8.7 gm/dL (6.4-8.2)
[2020-08-04 09:16] LABS: VITAMIN D, 25-HYDROXY 48.3 ng/mL (30-100)
[2020-08-04 09:17] LABS: FERRITIN 891.9 ng/mL (22.0-322.0); PTH INTACT 404.3 pg/mL (18.5-88.0)
== END | disposition home or self-care (01) ==
LOC: LAB 07:47
PROVIDERS: Internal Medicine Nephrology; Transplant Surgery; ATTEND Family Medicine
DX: Z00.00 Encounter for general adult medical examination without abnormal findings (principal); I12.0 Hypertensive chronic kidney disease with stage 5 chronic kidney disease or end stage renal disease; N18.5 Chronic kidney disease, stage 5; D84.9 Immunodeficiency, unspecified; D63.1 Anemia in chronic kidney disease; N25.81 Secondary hyperparathyroidism of renal origin; Z94.4 Liver transplant status

== ENCOUNTER → 2020-12-27 | Outpatient (CLI) | payer MEDICARE, OTHER ==
[2020-12-27 12:21] LABS: ACT PARTIAL THROMBO TIME 30.6 SECONDS (20.0-32.1)
== END | disposition home or self-care (01) ==
LOC: LAB 11:40
PROVIDERS: ATTEND Internal Medicine Pulmonary Disease
DX: Z01.812 Encounter for preprocedural laboratory examination (principal); N18.4 Chronic kidney disease, stage 4 (severe); R91.8 Other nonspecific abnormal finding of lung field; D63.1 Anemia in chronic kidney disease

== ENCOUNTER → 2021-01-16 | Outpatient (CLI) | payer MEDICARE, OTHER ==
[2021-01-16 08:32] LABS: BASO % 0.5 % (0.0-1.0); EOS # 0.1 10*3/uL (0.0-0.4); EOS % 1.2 % (1.0-4.0); HEMATOCRIT 41.6 % (42.0-52.0); LYMPH # 1.6 10*3/uL (1.3-4.4); LYMPH % 21.4 % (27.0-41.0); MEAN CELL VOLUME 90.2 fl (80.0-94.0); MEAN CORPUSCULAR HGB 27.5 pg (27.0-31.0); MEAN CORPUSCULAR HGB CONC 30.5 g/dl (33.0-37.0); MEAN PLATELET VOLUME 10.7 fl (9.6-12.3); MONO # 0.6 10*3/uL (0.1-1.0); MONO % 7.8 % (3.0-9.0); NEUT % 68.7 % (47.0-73.0); PLATELET COUNT AUTOMATED 227 10*3/uL (130-400); RED BLOOD COUNT 4.61 10*6/uL (4.50-5.90); WHITE BLOOD COUNT 7.3 10*3/uL (4.8-10.8)
[2021-01-16 08:58] LABS: ALBUMIN 3.3 gm/dl (3.1-4.5); CREATININE 3.7 mg/dL (0.70-1.30); POTASSIUM 4.7 mmol/L (3.5-5.1); TOTAL PROTEIN 8.5 gm/dL (6.4-8.2)
[2021-01-16 09:19] LABS: IRON 56 ug/dL (65-175); TOTAL IRON BINDING CAPACITY 204 ug/dl (250-450)
[2021-01-16 09:59] LABS: FERRITIN 900.8 ng/mL (22.0-322.0); VITAMIN D, 25-HYDROXY 32.8 ng/mL (30-100)
[2021-01-16 10:00] LABS: PTH INTACT 318.5 pg/mL (18.5-88.0)
[2021-01-17 14:08] LABS: CYCLOSPORINE, BLOOD 125 ng/mL (100-400)
== END | disposition home or self-care (01) ==
LOC: LAB 08:01 → CT 09:00
PROVIDERS: Family Medicine; Internal Medicine Nephrology; ATTEND Internal Medicine Pulmonary Disease
DX: Z48.23 Encounter for aftercare following liver transplant (principal); I12.9 Hypertensive chronic kidney disease with stage 1 through stage 4 chronic kidney disease, or unspecified chronic kidney disease; N18.4 Chronic kidney disease, stage 4 (severe); N25.81 Secondary hyperparathyroidism of renal origin; D84.9 Immunodeficiency, unspecified; R91.8 Other nonspecific abnormal finding of lung field; Z94.4 Liver transplant status; Z00.01 Encounter for general adult medical examination with abnormal findings

== ENCOUNTER → 2021-03-13 | Outpatient (CLI) | payer OTHER, MEDICARE | END | disposition home or self-care (01) | LOC: LAB 09:26 | PROVIDERS: ATTEND Surgery | DX: R97.20 Elevated prostate specific antigen [PSA] (principal); Z76.82 Awaiting organ transplant status ==

== ENCOUNTER → 2021-04-24 | Outpatient (CLI) | payer OTHER, MEDICARE ==
[2021-04-24 08:07] LABS: BASO % 0.4 % (0.0-1.0); EOS # 0.1 10*3/uL (0.0-0.4); EOS % 0.8 % (1.0-4.0); HEMATOCRIT 42.2 % (42.0-52.0); LYMPH # 1.9 10*3/uL (1.3-4.4); LYMPH % 21.1 % (27.0-41.0); MEAN CELL VOLUME 90.9 fl (80.0-94.0); MEAN CORPUSCULAR HGB 27.8 pg (27.0-31.0); MEAN CORPUSCULAR HGB CONC 30.6 g/dl (33.0-37.0); MEAN PLATELET VOLUME 11.2 fl (9.6-12.3); MONO # 0.7 10*3/uL (0.1-1.0); NEUT # 6.1 10*3/uL (2.3-7.9); NEUT % 69.1 % (47.0-73.0); PLATELET COUNT AUTOMATED 236 10*3/uL (130-400); RED BLOOD COUNT 4.64 10*6/uL (4.50-5.90); RED CELL DISTRI WIDTH 15.9 % (0-14.5); WHITE BLOOD COUNT 8.9 10*3/uL (4.8-10.8)
[2021-04-24 08:22] LABS: CREATININE 4.47 mg/dL (0.70-1.30); POTASSIUM 4.5 mmol/L (3.5-5.1); TOTAL PROTEIN 8.3 gm/dL (6.4-8.2)
[2021-04-25 15:07] LABS: CYCLOSPORINE, BLOOD 150 ng/mL (100-400)
== END | disposition home or self-care (01) ==
LOC: LAB 07:44
PROVIDERS: ATTEND Internal Medicine
DX: Z48.23 Encounter for aftercare following liver transplant (principal); D84.9 Immunodeficiency, unspecified; Z94.4 Liver transplant status

== ENCOUNTER → 2021-05-01 | Outpatient (CLI) | payer OTHER, MEDICARE ==
[2021-05-01 10:59] LABS: BASO % 0.4 % (0.0-1.0); EOS # 0.1 10*3/uL (0.0-0.4); HEMATOCRIT 42.8 % (42.0-52.0); LYMPH # 1.9 10*3/uL (1.3-4.4); LYMPH % 20.1 % (27.0-41.0); MEAN CELL VOLUME 91.6 fl (80.0-94.0); MEAN CORPUSCULAR HGB 28.1 pg (27.0-31.0); MEAN CORPUSCULAR HGB CONC 30.6 g/dl (33.0-37.0); MEAN PLATELET VOLUME 11.3 fl (9.6-12.3); MONO # 0.6 10*3/uL (0.1-1.0); MONO % 6.3 % (3.0-9.0); NEUT # 6.7 10*3/uL (2.3-7.9); NEUT % 71.6 % (47.0-73.0); PLATELET COUNT AUTOMATED 265 10*3/uL (130-400); RED BLOOD COUNT 4.67 10*6/uL (4.50-5.90); RED CELL DISTRI WIDTH 16.4 % (0-14.5); WHITE BLOOD COUNT 9.4 10*3/uL (4.8-10.8)
[2021-05-01 11:16] LABS: ALBUMIN 3.1 gm/dl (3.1-4.5); CREATININE 3.67 mg/dL (0.70-1.30); POTASSIUM 4.5 mmol/L (3.5-5.1); TOTAL PROTEIN 8.4 gm/dL (6.4-8.2)
[2021-05-02 15:07] LABS: CYCLOSPORINE, BLOOD 111 ng/mL (100-400)
== END | disposition home or self-care (01) ==
LOC: US 02:01 → LAB 02:01 → US 11:30
PROVIDERS: ATTEND Internal Medicine
DX: R94.5 Abnormal results of liver function studies (principal); Z94.4 Liver transplant status; Z79.899 Other long term (current) drug therapy; Z90.49 Acquired absence of other specified parts of digestive tract

== ENCOUNTER → 2021-05-09 | Outpatient (CLI) | payer OTHER, MEDICARE ==
[2021-05-09 08:45] LABS: BASO % 0.2 % (0.0-1.0); EOS % 0.2 % (1.0-4.0); HEMATOCRIT 42.2 % (42.0-52.0); LYMPH % 8.1 % (27.0-41.0); MEAN CELL VOLUME 91.3 fl (80.0-94.0); MEAN CORPUSCULAR HGB 28.4 pg (27.0-31.0); MEAN PLATELET VOLUME 12.3 fl (9.6-12.3); MONO # 1.1 10*3/uL (0.1-1.0); MONO % 8.8 % (3.0-9.0); NEUT # 10.5 10*3/uL (2.3-7.9); NEUT % 82.3 % (47.0-73.0); PLATELET COUNT AUTOMATED 266 10*3/uL (130-400); RED BLOOD COUNT 4.62 10*6/uL (4.50-5.90); RED CELL DISTRI WIDTH 16.6 % (0-14.5); WHITE BLOOD COUNT 12.8 10*3/uL (4.8-10.8)
[2021-05-09 09:15] LABS: ALBUMIN 3.1 gm/dl (3.1-4.5); CREATININE 3.92 mg/dL (0.70-1.30); POTASSIUM 4.5 mmol/L (3.5-5.1); TOTAL PROTEIN 8.4 gm/dL (6.4-8.2)
[2021-05-10 12:07] LABS: CYCLOSPORINE, BLOOD 89 ng/mL (100-400)
== END | disposition home or self-care (01) ==
LOC: LAB 07:41
PROVIDERS: ATTEND Internal Medicine
DX: Z48.23 Encounter for aftercare following liver transplant (principal); D84.9 Immunodeficiency, unspecified; Z94.4 Liver transplant status

== ENCOUNTER → 2021-05-23 | Outpatient (CLI) | payer OTHER, MEDICARE ==
[2021-05-23 08:30] LABS: BASO # 0.1 10*3/uL (0.0-0.1); BASO % 0.6 % (0.0-1.0); EOS # 0.1 10*3/uL (0.0-0.4); EOS % 1.1 % (1.0-4.0); HEMATOCRIT 42.6 % (42.0-52.0); LYMPH # 2.1 10*3/uL (1.3-4.4); LYMPH % 22.4 % (27.0-41.0); MEAN CELL VOLUME 91.2 fl (80.0-94.0); MEAN CORPUSCULAR HGB 28.5 pg (27.0-31.0); MEAN CORPUSCULAR HGB CONC 31.2 g/dl (33.0-37.0); MONO # 0.7 10*3/uL (0.1-1.0); MONO % 7.6 % (3.0-9.0); NEUT # 6.3 10*3/uL (2.3-7.9); NEUT % 67.9 % (47.0-73.0); PLATELET COUNT AUTOMATED 255 10*3/uL (130-400); RED BLOOD COUNT 4.67 10*6/uL (4.50-5.90); RED CELL DISTRI WIDTH 16.3 % (0-14.5); WHITE BLOOD COUNT 9.2 10*3/uL (4.8-10.8)
[2021-05-23 08:47] LABS: CREATININE 3.65 mg/dL (0.70-1.30); POTASSIUM 4.3 mmol/L (3.5-5.1); TOTAL PROTEIN 8.3 gm/dL (6.4-8.2)
[2021-05-24 14:08] LABS: CYCLOSPORINE, BLOOD 146 ng/mL (100-400)
== END | disposition home or self-care (01) ==
LOC: LAB 07:46
PROVIDERS: ATTEND Internal Medicine
DX: N18.5 Chronic kidney disease, stage 5 (principal); R94.5 Abnormal results of liver function studies; Z79.899 Other long term (current) drug therapy; Z94.4 Liver transplant status

== ENCOUNTER → 2021-05-30 | Outpatient (CLI) | payer OTHER, MEDICARE ==
[2021-05-30 08:01] LABS: BASO # 0.1 10*3/uL (0.0-0.1); BASO % 0.7 % (0.0-1.0); EOS # 0.1 10*3/uL (0.0-0.4); EOS % 1.2 % (1.0-4.0); HEMATOCRIT 41.8 % (42.0-52.0); LYMPH # 2.4 10*3/uL (1.3-4.4); MEAN CELL VOLUME 91.3 fl (80.0-94.0); MEAN CORPUSCULAR HGB 28.8 pg (27.0-31.0); MEAN CORPUSCULAR HGB CONC 31.6 g/dl (33.0-37.0); MEAN PLATELET VOLUME 11.6 fl (9.6-12.3); MONO # 0.9 10*3/uL (0.1-1.0); MONO % 9.3 % (3.0-9.0); NEUT # 5.8 10*3/uL (2.3-7.9); NEUT % 62.4 % (47.0-73.0); PLATELET COUNT AUTOMATED 267 10*3/uL (130-400); RED BLOOD COUNT 4.58 10*6/uL (4.50-5.90); WHITE BLOOD COUNT 9.2 10*3/uL (4.8-10.8)
[2021-05-30 08:19] LABS: CREATININE 3.95 mg/dL (0.70-1.30); POTASSIUM 4.3 mmol/L (3.5-5.1); TOTAL PROTEIN 8.5 gm/dL (6.4-8.2)
[2021-05-31 14:08] LABS: CYCLOSPORINE, BLOOD 155 ng/mL (100-400)
== END | disposition home or self-care (01) ==
LOC: LAB 07:34
PROVIDERS: ATTEND Internal Medicine
DX: N18.5 Chronic kidney disease, stage 5 (principal); R94.5 Abnormal results of liver function studies; Z94.4 Liver transplant status; Z79.899 Other long term (current) drug therapy

== ENCOUNTER → 2021-06-06 | Outpatient (CLI) | payer OTHER, MEDICARE ==
[2021-06-06 08:39] LABS: BASO # 0.1 10*3/uL (0.0-0.1); BASO % 0.5 % (0.0-1.0); EOS # 0.1 10*3/uL (0.0-0.4); EOS % 1.4 % (1.0-4.0); HEMATOCRIT 40.9 % (42.0-52.0); LYMPH # 2.2 10*3/uL (1.3-4.4); LYMPH % 23.7 % (27.0-41.0); MEAN CELL VOLUME 91.3 fl (80.0-94.0); MEAN CORPUSCULAR HGB CONC 31.8 g/dl (33.0-37.0); MEAN PLATELET VOLUME 11.6 fl (9.6-12.3); MONO # 0.7 10*3/uL (0.1-1.0); NEUT # 6.1 10*3/uL (2.3-7.9); PLATELET COUNT AUTOMATED 241 10*3/uL (130-400); RED BLOOD COUNT 4.48 10*6/uL (4.50-5.90); RED CELL DISTRI WIDTH 16.2 % (0-14.5); WHITE BLOOD COUNT 9.3 10*3/uL (4.8-10.8)
[2021-06-06 08:58] LABS: POTASSIUM 4.4 mmol/L (3.5-5.1)
[2021-06-06 09:20] LABS: ALBUMIN 3.1 gm/dl (3.1-4.5); CREATININE 4.04 mg/dL (0.70-1.30); TOTAL PROTEIN 8.6 gm/dL (6.4-8.2)
[2021-06-07 13:07] LABS: CYCLOSPORINE, BLOOD 122 ng/mL (100-400)
== END | disposition home or self-care (01) ==
LOC: LAB 08:03
PROVIDERS: ATTEND Internal Medicine
DX: N18.5 Chronic kidney disease, stage 5 (principal); R94.5 Abnormal results of liver function studies; Z94.4 Liver transplant status; Z79.899 Other long term (current) drug therapy

== ENCOUNTER → 2021-07-03 | Outpatient (CLI) | payer OTHER, MEDICARE ==
[2021-07-03 09:10] LABS: BASO % 0.4 % (0.0-1.0); EOS # 0.1 10*3/uL (0.0-0.4); HEMATOCRIT 42.5 % (42.0-52.0); LYMPH # 2.5 10*3/uL (1.3-4.4); LYMPH % 24.7 % (27.0-41.0); MEAN CORPUSCULAR HGB 29.3 pg (27.0-31.0); MEAN CORPUSCULAR HGB CONC 31.5 g/dl (33.0-37.0); MEAN PLATELET VOLUME 12.1 fl (9.6-12.3); MONO # 0.9 10*3/uL (0.1-1.0); MONO % 8.6 % (3.0-9.0); NEUT # 6.3 10*3/uL (2.3-7.9); NEUT % 63.5 % (47.0-73.0); PLATELET COUNT AUTOMATED 258 10*3/uL (130-400); RED BLOOD COUNT 4.57 10*6/uL (4.50-5.90); RED CELL DISTRI WIDTH 16.6 % (0-14.5); WHITE BLOOD COUNT 9.9 10*3/uL (4.8-10.8)
[2021-07-03 09:28] LABS: CREATININE 3.95 mg/dL (0.70-1.30); POTASSIUM 4.3 mmol/L (3.5-5.1); TOTAL PROTEIN 8.4 gm/dL (6.4-8.2)
[2021-07-04 14:08] LABS: CYCLOSPORINE, BLOOD 140 ng/mL (100-400)
== END | disposition home or self-care (01) ==
LOC: LAB 08:02
PROVIDERS: ATTEND Internal Medicine
DX: N18.5 Chronic kidney disease, stage 5 (principal); R94.5 Abnormal results of liver function studies; Z79.899 Other long term (current) drug therapy; Z94.4 Liver transplant status

== ENCOUNTER → 2021-09-19 | Outpatient (CLI) | payer MEDICARE, OTHER ==
[2021-09-19 08:09] LABS: BASO # 0.1 10*3/uL (0.0-0.1); BASO % 0.5 % (0.0-1.0); EOS # 0.2 10*3/uL (0.0-0.4); EOS % 2.2 % (1.0-4.0); HEMATOCRIT 37.8 % (42.0-52.0); LYMPH # 1.8 10*3/uL (1.3-4.4); LYMPH % 19.5 % (27.0-41.0); MEAN CELL VOLUME 95.9 fl (80.0-94.0); MEAN CORPUSCULAR HGB 29.9 pg (27.0-31.0); MEAN CORPUSCULAR HGB CONC 31.2 g/dl (33.0-37.0); MEAN PLATELET VOLUME 11.6 fl (9.6-12.3); MONO # 0.9 10*3/uL (0.1-1.0); MONO % 9.7 % (3.0-9.0); NEUT # 6.2 10*3/uL (2.3-7.9); NEUT % 67.6 % (47.0-73.0); PLATELET COUNT AUTOMATED 220 10*3/uL (130-400); RED BLOOD COUNT 3.94 10*6/uL (4.50-5.90); RED CELL DISTRI WIDTH 16.4 % (0-14.5); WHITE BLOOD COUNT 9.1 10*3/uL (4.8-10.8)
[2021-09-19 08:28] LABS: CREATININE 4.54 mg/dL (0.70-1.30); POTASSIUM 4.5 mmol/L (3.5-5.1); TOTAL PROTEIN 8.1 gm/dL (6.4-8.2)
[2021-09-20 13:07] LABS: CYCLOSPORINE, BLOOD 77 ng/mL (100-400)
== END | disposition home or self-care (01) ==
LOC: LAB 07:53
PROVIDERS: ATTEND Internal Medicine
DX: N18.5 Chronic kidney disease, stage 5 (principal); Z79.899 Other long term (current) drug therapy; R94.5 Abnormal results of liver function studies; Z94.4 Liver transplant status

== ENCOUNTER → 2021-09-28 | Outpatient (CLI) | payer MEDICARE, OTHER ==
[2021-09-28 08:36] LABS: BASO % 0.5 % (0.0-1.0); EOS # 0.2 10*3/uL (0.0-0.4); EOS % 2.3 % (1.0-4.0); HEMATOCRIT 35.9 % (42.0-52.0); LYMPH # 1.4 10*3/uL (1.3-4.4); LYMPH % 16.5 % (27.0-41.0); MEAN CELL VOLUME 94.7 fl (80.0-94.0); MEAN CORPUSCULAR HGB 30.1 pg (27.0-31.0); MEAN CORPUSCULAR HGB CONC 31.8 g/dl (33.0-37.0); MEAN PLATELET VOLUME 12.3 fl (9.6-12.3); MONO # 0.7 10*3/uL (0.1-1.0); MONO % 8.9 % (3.0-9.0); NEUT % 71.4 % (47.0-73.0); PLATELET COUNT AUTOMATED 232 10*3/uL (130-400); RED BLOOD COUNT 3.79 10*6/uL (4.50-5.90); RED CELL DISTRI WIDTH 16.6 % (0-14.5); WHITE BLOOD COUNT 8.3 10*3/uL (4.8-10.8)
[2021-09-28 08:56] LABS: CREATININE 4.21 mg/dL (0.70-1.30); POTASSIUM 4.1 mmol/L (3.5-5.1); TOTAL PROTEIN 7.6 gm/dL (6.4-8.2)
[2021-09-29 14:08] LABS: CYCLOSPORINE, BLOOD 164 ng/mL (100-400)
== END | disposition home or self-care (01) ==
LOC: LAB 08:00
PROVIDERS: ATTEND Internal Medicine
DX: N18.5 Chronic kidney disease, stage 5 (principal); R94.5 Abnormal results of liver function studies; Z94.4 Liver transplant status; Z79.899 Other long term (current) drug therapy

== ENCOUNTER → 2021-10-03 | Outpatient (CLI) | payer MEDICARE, OTHER ==
[2021-10-03 08:42] LABS: BASO % 0.4 % (0.0-1.0); EOS # 0.2 10*3/uL (0.0-0.4); EOS % 2.1 % (1.0-4.0); HEMATOCRIT 36.1 % (42.0-52.0); LYMPH # 1.9 10*3/uL (1.3-4.4); LYMPH % 20.7 % (27.0-41.0); MEAN CELL VOLUME 95.3 fl (80.0-94.0); MEAN CORPUSCULAR HGB 30.3 pg (27.0-31.0); MEAN CORPUSCULAR HGB CONC 31.9 g/dl (33.0-37.0); MEAN PLATELET VOLUME 11.8 fl (9.6-12.3); MONO # 0.8 10*3/uL (0.1-1.0); MONO % 8.8 % (3.0-9.0); NEUT # 6.1 10*3/uL (2.3-7.9); NEUT % 67.2 % (47.0-73.0); PLATELET COUNT AUTOMATED 218 10*3/uL (130-400); RED BLOOD COUNT 3.79 10*6/uL (4.50-5.90); RED CELL DISTRI WIDTH 16.8 % (0-14.5); WHITE BLOOD COUNT 9.1 10*3/uL (4.8-10.8)
[2021-10-03 08:59] LABS: POTASSIUM 4.1 mmol/L (3.5-5.1)
[2021-10-03 09:09] LABS: CREATININE 4.79 mg/dL (0.70-1.30); TOTAL PROTEIN 7.6 gm/dL (6.4-8.2)
[2021-10-04 13:07] LABS: CYCLOSPORINE, BLOOD 124 ng/mL (100-400)
== END | disposition home or self-care (01) ==
LOC: LAB 08:17
PROVIDERS: ATTEND Internal Medicine
DX: N18.5 Chronic kidney disease, stage 5 (principal); R94.5 Abnormal results of liver function studies; Z94.4 Liver transplant status; Z79.899 Other long term (current) drug therapy

== ENCOUNTER → 2021-10-11 | Outpatient (CLI) | payer MEDICARE, OTHER ==
[2021-10-11 08:22] LABS: BASO # 0.1 10*3/uL (0.0-0.1); BASO % 0.7 % (0.0-1.0); EOS # 0.2 10*3/uL (0.0-0.4); EOS % 1.9 % (1.0-4.0); HEMATOCRIT 37.1 % (42.0-52.0); LYMPH % 20.6 % (27.0-41.0); MEAN CELL VOLUME 95.9 fl (80.0-94.0); MEAN CORPUSCULAR HGB 30.7 pg (27.0-31.0); MEAN CORPUSCULAR HGB CONC 32.1 g/dl (33.0-37.0); MEAN PLATELET VOLUME 11.5 fl (9.6-12.3); MONO # 0.9 10*3/uL (0.1-1.0); MONO % 9.2 % (3.0-9.0); NEUT # 6.6 10*3/uL (2.3-7.9); NEUT % 67.1 % (47.0-73.0); PLATELET COUNT AUTOMATED 247 10*3/uL (130-400); RED BLOOD COUNT 3.87 10*6/uL (4.50-5.90); RED CELL DISTRI WIDTH 16.1 % (0-14.5); WHITE BLOOD COUNT 9.9 10*3/uL (4.8-10.8)
[2021-10-11 08:31] LABS: INTERNATIONAL NORM RATIO 0.9 (2.0-3.5)
[2021-10-11 08:40] LABS: CREATININE 5.15 mg/dL (0.70-1.30); POTASSIUM 4.7 mmol/L (3.5-5.1); TOTAL PROTEIN 8.2 gm/dL (6.4-8.2)
[2021-10-12 14:08] LABS: CYCLOSPORINE, BLOOD 116 ng/mL (100-400)
== END | disposition home or self-care (01) ==
LOC: LAB 08:00
PROVIDERS: ATTEND Internal Medicine
DX: N18.5 Chronic kidney disease, stage 5 (principal); R94.5 Abnormal results of liver function studies; Z94.4 Liver transplant status; Z79.899 Other long term (current) drug therapy

== ENCOUNTER → 2021-10-16 | Outpatient (CLI) | payer MEDICARE, OTHER ==
[2021-10-16 08:13] LABS: BASO # 0.1 10*3/uL (0.0-0.1); BASO % 0.6 % (0.0-1.0); EOS # 0.2 10*3/uL (0.0-0.4); EOS % 1.7 % (1.0-4.0); HEMATOCRIT 36.5 % (42.0-52.0); LYMPH # 1.5 10*3/uL (1.3-4.4); LYMPH % 14.9 % (27.0-41.0); MEAN CELL VOLUME 94.8 fl (80.0-94.0); MEAN CORPUSCULAR HGB 30.4 pg (27.0-31.0); MEAN CORPUSCULAR HGB CONC 32.1 g/dl (33.0-37.0); MEAN PLATELET VOLUME 11.5 fl (9.6-12.3); MONO # 1.1 10*3/uL (0.1-1.0); MONO % 10.5 % (3.0-9.0); NEUT # 7.3 10*3/uL (2.3-7.9); NEUT % 71.6 % (47.0-73.0); PLATELET COUNT AUTOMATED 276 10*3/uL (130-400); RED BLOOD COUNT 3.85 10*6/uL (4.50-5.90); RED CELL DISTRI WIDTH 16.1 % (0-14.5); WHITE BLOOD COUNT 10.2 10*3/uL (4.8-10.8)
[2021-10-16 08:22] LABS: INTERNATIONAL NORM RATIO 0.9 (2.0-3.5)
[2021-10-16 08:47] LABS: CREATININE 5.06 mg/dL (0.70-1.30); POTASSIUM 4.1 mmol/L (3.5-5.1); TOTAL PROTEIN 8.3 gm/dL (6.4-8.2)
[2021-10-17 15:07] LABS: CYCLOSPORINE, BLOOD 124 ng/mL (100-400)
== END | disposition home or self-care (01) ==
LOC: LAB 07:54
PROVIDERS: Internal Medicine; ATTEND Internal Medicine
DX: R79.89 Other specified abnormal findings of blood chemistry (principal); Z94.4 Liver transplant status; Z79.899 Other long term (current) drug therapy

== ENCOUNTER → 2021-12-21 | Outpatient (CLI) | payer MEDICARE, OTHER ==
[2021-12-21 08:08] LABS: BASO % 0.5 % (0.0-1.0); EOS # 0.1 10*3/uL (0.0-0.4); EOS % 1.1 % (1.0-4.0); HEMATOCRIT 36.4 % (42.0-52.0); LYMPH # 1.4 10*3/uL (1.3-4.4); LYMPH % 17.1 % (27.0-41.0); MEAN CELL VOLUME 99.2 fl (80.0-94.0); MEAN CORPUSCULAR HGB 30.8 pg (27.0-31.0); MEAN PLATELET VOLUME 11.1 fl (9.6-12.3); MONO # 0.6 10*3/uL (0.1-1.0); MONO % 7.4 % (3.0-9.0); NEUT # 6.1 10*3/uL (2.3-7.9); NEUT % 73.3 % (47.0-73.0); PLATELET COUNT AUTOMATED 276 10*3/uL (130-400); RED BLOOD COUNT 3.67 10*6/uL (4.50-5.90); RED CELL DISTRI WIDTH 13.9 % (0-14.5); WHITE BLOOD COUNT 8.3 10*3/uL (4.8-10.8)
[2021-12-21 08:30] LABS: CREATININE 5.1 mg/dL (0.70-1.30); POTASSIUM 4.4 mmol/L (3.5-5.1); TOTAL PROTEIN 8.1 gm/dL (6.4-8.2)
[2021-12-22 15:07] LABS: CYCLOSPORINE, BLOOD 106 ng/mL (100-400)
== END | disposition home or self-care (01) ==
LOC: LAB 07:41
PROVIDERS: ATTEND Internal Medicine
DX: R79.89 Other specified abnormal findings of blood chemistry (principal); Z79.899 Other long term (current) drug therapy; Z94.4 Liver transplant status

== ENCOUNTER → 2022-01-29 | Outpatient (CLI) | payer MEDICARE, OTHER ==
[2022-01-29 08:41] LABS: BASO % 0.5 % (0.0-1.0); EOS # 0.1 10*3/uL (0.0-0.4); EOS % 1.4 % (1.0-4.0); HEMATOCRIT 36.3 % (42.0-52.0); LYMPH # 1.3 10*3/uL (1.3-4.4); LYMPH % 16.5 % (27.0-41.0); MEAN CELL VOLUME 96.3 fl (80.0-94.0); MEAN CORPUSCULAR HGB CONC 31.1 g/dl (33.0-37.0); MONO # 0.7 10*3/uL (0.1-1.0); MONO % 8.6 % (3.0-9.0); NEUT # 5.6 10*3/uL (2.3-7.9); NEUT % 72.5 % (47.0-73.0); PLATELET COUNT AUTOMATED 274 10*3/uL (130-400); RED BLOOD COUNT 3.77 10*6/uL (4.50-5.90); RED CELL DISTRI WIDTH 13.7 % (0-14.5); WHITE BLOOD COUNT 7.8 10*3/uL (4.8-10.8)
[2022-01-29 08:59] LABS: CREATININE 6.01 mg/dL (0.70-1.30)
[2022-01-29 09:03] LABS: CREATININE 6.05 mg/dL (0.70-1.30); POTASSIUM 4.9 mmol/L (3.5-5.1)
[2022-01-29 09:04] LABS: TOTAL PROTEIN 8.1 gm/dL (6.4-8.2)
[2022-01-29 11:13] LABS: FERRITIN 837.7 ng/mL (22.0-322.0); VITAMIN D, 25-HYDROXY 26.3 ng/mL (30-100)
[2022-01-30 15:06] LABS: CYCLOSPORINE, BLOOD 95 ng/mL (100-400)
== END ==
LOC: LAB 08:12
PROVIDERS: Internal Medicine; ATTEND Internal Medicine Nephrology
DX: N18.4 Chronic kidney disease, stage 4 (severe) (principal); N25.81 Secondary hyperparathyroidism of renal origin; D63.1 Anemia in chronic kidney disease; R79.89 Other specified abnormal findings of blood chemistry; Z79.899 Other long term (current) drug therapy

== ENCOUNTER → 2022-02-21 | Outpatient (CLI) | payer MEDICARE, OTHER ==
[2022-02-21 08:51] LABS: BASO % 0.4 % (0.0-1.0); EOS # 0.1 10*3/uL (0.0-0.4); EOS % 1.1 % (1.0-4.0); HEMATOCRIT 38.5 % (42.0-52.0); LYMPH # 1.1 10*3/uL (1.3-4.4); LYMPH % 16.2 % (27.0-41.0); MEAN CELL VOLUME 95.1 fl (80.0-94.0); MEAN CORPUSCULAR HGB 29.1 pg (27.0-31.0); MEAN CORPUSCULAR HGB CONC 30.6 g/dl (33.0-37.0); MEAN PLATELET VOLUME 11.4 fl (9.6-12.3); MONO # 0.7 10*3/uL (0.1-1.0); MONO % 9.5 % (3.0-9.0); NEUT # 5.1 10*3/uL (2.3-7.9); NEUT % 72.5 % (47.0-73.0); PLATELET COUNT AUTOMATED 226 10*3/uL (130-400); RED BLOOD COUNT 4.05 10*6/uL (4.50-5.90); RED CELL DISTRI WIDTH 14.1 % (0-14.5)
[2022-02-21 09:10] LABS: CREATININE 5.25 mg/dL (0.70-1.30); POTASSIUM 4.4 mmol/L (3.5-5.1); TOTAL PROTEIN 8.2 gm/dL (6.4-8.2)
[2022-02-22 15:06] LABS: CYCLOSPORINE, BLOOD 225 ng/mL (100-400)
== END | disposition home or self-care (01) ==
LOC: LAB 08:22
PROVIDERS: ATTEND Internal Medicine
DX: R79.89 Other specified abnormal findings of blood chemistry (principal); Z79.899 Other long term (current) drug therapy; Z94.4 Liver transplant status

== ENCOUNTER → 2022-02-23 | Outpatient (CLI) | payer MEDICARE, OTHER | END | disposition home or self-care (01) | LOC: RESCLI 13:07 | PROVIDERS: ATTEND Internal Medicine | DX: I12.9 Hypertensive chronic kidney disease with stage 1 through stage 4 chronic kidney disease, or unspecified chronic kidney disease (principal); N18.9 Chronic kidney disease, unspecified; E55.9 Vitamin D deficiency, unspecified; E53.8 Deficiency of other specified B group vitamins; K80.10 Calculus of gallbladder with chronic cholecystitis without obstruction; J98.4 Other disorders of lung; Z94.4 Liver transplant status; Z79.899 Other long term (current) drug therapy; Z79.82 Long term (current) use of aspirin ==

== ENCOUNTER → 2022-03-07 | Outpatient (CLI) | payer MEDICARE, OTHER ==
[2022-03-07 08:23] LABS: BASO % 0.2 % (0.0-1.0); EOS # 0.1 10*3/uL (0.0-0.4); EOS % 0.7 % (1.0-4.0); HEMATOCRIT 33.8 % (42.0-52.0); LYMPH # 1.6 10*3/uL (1.3-4.4); LYMPH % 16.5 % (27.0-41.0); MEAN CELL VOLUME 93.9 fl (80.0-94.0); MEAN CORPUSCULAR HGB 29.4 pg (27.0-31.0); MEAN CORPUSCULAR HGB CONC 31.4 g/dl (33.0-37.0); MEAN PLATELET VOLUME 11.8 fl (9.6-12.3); MONO # 0.9 10*3/uL (0.1-1.0); MONO % 9.5 % (3.0-9.0); NEUT # 6.8 10*3/uL (2.3-7.9); NEUT % 72.7 % (47.0-73.0); PLATELET COUNT AUTOMATED 182 10*3/uL (130-400); RED CELL DISTRI WIDTH 14.6 % (0-14.5); WHITE BLOOD COUNT 9.4 10*3/uL (4.8-10.8)
[2022-03-07 08:37] LABS: CREATININE 6.15 mg/dL (0.70-1.30); POTASSIUM 4.2 mmol/L (3.5-5.1); TOTAL PROTEIN 7.5 gm/dL (6.4-8.2)
[2022-03-08 16:07] LABS: CYCLOSPORINE, BLOOD 122 ng/mL (100-400)
== END | disposition home or self-care (01) ==
LOC: LAB 07:47
PROVIDERS: ATTEND Internal Medicine
DX: R79.89 Other specified abnormal findings of blood chemistry (principal); Z94.4 Liver transplant status; Z79.899 Other long term (current) drug therapy

== ENCOUNTER → 2022-03-28 | Outpatient (CLI) | payer MEDICARE, OTHER ==
[2022-03-28 08:08] LABS: BASO % 0.5 % (0.0-1.0); EOS # 0.1 10*3/uL (0.0-0.4); EOS % 1.2 % (1.0-4.0); HEMATOCRIT 33.7 % (42.0-52.0); LYMPH # 1.6 10*3/uL (1.3-4.4); LYMPH % 21.7 % (27.0-41.0); MEAN CELL VOLUME 92.3 fl (80.0-94.0); MEAN CORPUSCULAR HGB CONC 31.5 g/dl (33.0-37.0); MEAN PLATELET VOLUME 10.8 fl (9.6-12.3); MONO # 0.6 10*3/uL (0.1-1.0); MONO % 8.5 % (3.0-9.0); NEUT # 5.1 10*3/uL (2.3-7.9); NEUT % 67.6 % (47.0-73.0); PLATELET COUNT AUTOMATED 291 10*3/uL (130-400); RED BLOOD COUNT 3.65 10*6/uL (4.50-5.90); RED CELL DISTRI WIDTH 14.4 % (0-14.5); WHITE BLOOD COUNT 7.5 10*3/uL (4.8-10.8)
[2022-03-28 08:27] LABS: CREATININE 6.71 mg/dL (0.70-1.30); POTASSIUM 4.4 mmol/L (3.5-5.1); TOTAL PROTEIN 8.2 gm/dL (6.4-8.2)
[2022-03-29 13:06] LABS: CYCLOSPORINE, BLOOD 93 ng/mL (100-400)
== END ==
LOC: LAB 07:47
PROVIDERS: ATTEND Internal Medicine
DX: R79.89 Other specified abnormal findings of blood chemistry (principal); Z79.899 Other long term (current) drug therapy; Z94.4 Liver transplant status

== ENCOUNTER → 2022-04-25 | Outpatient (CLI) | payer MEDICARE, OTHER ==
[2022-04-25 08:28] LABS: BASO # 0.1 10*3/uL (0.0-0.1); BASO % 0.6 % (0.0-1.0); EOS # 0.1 10*3/uL (0.0-0.4); EOS % 1.3 % (1.0-4.0); HEMATOCRIT 31.8 % (42.0-52.0); LYMPH # 1.4 10*3/uL (1.3-4.4); LYMPH % 18.1 % (27.0-41.0); MEAN CELL VOLUME 93.5 fl (80.0-94.0); MEAN CORPUSCULAR HGB 29.1 pg (27.0-31.0); MEAN CORPUSCULAR HGB CONC 31.1 g/dl (33.0-37.0); MEAN PLATELET VOLUME 11.4 fl (9.6-12.3); MONO # 0.8 10*3/uL (0.1-1.0); MONO % 10.4 % (3.0-9.0); NEUT # 5.4 10*3/uL (2.3-7.9); NEUT % 69.2 % (47.0-73.0); PLATELET COUNT AUTOMATED 227 10*3/uL (130-400); RED CELL DISTRI WIDTH 14.7 % (0-14.5); WHITE BLOOD COUNT 7.8 10*3/uL (4.8-10.8)
[2022-04-25 09:54] LABS: POTASSIUM 4.1 mmol/L (3.5-5.1)
[2022-04-25 10:03] LABS: CREATININE 6.56 mg/dL (0.70-1.30); TOTAL PROTEIN 7.9 gm/dL (6.4-8.2)
[2022-04-26 15:07] LABS: CYCLOSPORINE, BLOOD 90 ng/mL (100-400)
== END ==
LOC: LAB 08:02
PROVIDERS: ATTEND Internal Medicine
DX: R79.89 Other specified abnormal findings of blood chemistry (principal); Z94.4 Liver transplant status; Z79.899 Other long term (current) drug therapy

== ENCOUNTER → 2022-06-13 | Outpatient (CLI) | payer MEDICARE, OTHER ==
[2022-06-13 09:04] LABS: BASO % 0.4 % (0.0-1.0); EOS # 0.1 10*3/uL (0.0-0.4); HEMATOCRIT 30.5 % (42.0-52.0); LYMPH # 1.3 10*3/uL (1.3-4.4); LYMPH % 16.5 % (27.0-41.0); MEAN CELL VOLUME 92.4 fl (80.0-94.0); MEAN CORPUSCULAR HGB 29.4 pg (27.0-31.0); MEAN CORPUSCULAR HGB CONC 31.8 g/dl (33.0-37.0); MEAN PLATELET VOLUME 11.5 fl (9.6-12.3); MONO # 0.7 10*3/uL (0.1-1.0); MONO % 9.4 % (3.0-9.0); NEUT # 5.7 10*3/uL (2.3-7.9); NEUT % 72.2 % (47.0-73.0); PLATELET COUNT AUTOMATED 199 10*3/uL (130-400); RED CELL DISTRI WIDTH 14.6 % (0-14.5); WHITE BLOOD COUNT 7.9 10*3/uL (4.8-10.8)
[2022-06-13 09:28] LABS: ALKALINE PHOSPHATASE 74 U/L (46-116); BUN 61 mg/dl (9-23); CHLORIDE 106 mmol/L (98-107); CREATININE 6.39 mg/dL (0.70-1.30); GAMMA GLUTAMYL TRANSPEPTIDASE 43 U/L (0-73); POTASSIUM 4.4 mmol/L (3.4-5.1); SODIUM 139 mmol/L (136-145); TOTAL PROTEIN 7.4 gm/dL (6.0-8.0)
[2022-06-13 09:29] LABS: SGPT/ALT < 7 U/L (10-49)
[2022-06-14 14:07] LABS: CYCLOSPORINE, BLOOD 93 ng/mL (100-400)
== END | disposition home or self-care (01) ==
LOC: LAB 08:21
PROVIDERS: ATTEND Internal Medicine
DX: N18.5 Chronic kidney disease, stage 5 (principal); R94.5 Abnormal results of liver function studies; Z94.4 Liver transplant status; Z79.899 Other long term (current) drug therapy

== ENCOUNTER → 2023-04-26 | Outpatient (CLI) | payer MEDICARE, OTHER | END | disposition home or self-care (01) | LOC: RESCLI 01:06 | PROVIDERS: ATTEND Internal Medicine | DX: J44.9 Chronic obstructive pulmonary disease, unspecified (principal); K81.1 Chronic cholecystitis; I10 Essential (primary) hypertension; Z94.4 Liver transplant status; Z88.8 Allergy status to other drugs, medicaments and biological substances; Z79.899 Other long term (current) drug therapy ==

== ENCOUNTER 2023-06-08 14:15 | Emergency (ER) | payer MEDICARE, OTHER ==
[~2023-06-08] VITALS: Ht 180.3 cm; Wt 63.5 kg
[2023-06-08] MEDS ORDERED: MYCOPHENOLIC A180 M1 PO (15:07)
[2023-06-08 15:08] LABS: BASO % 0.3 % (0.0-1.0); EOS # 0.1 10*3/uL (0.0-0.4); EOS % 1.3 % (1.0-4.0); HEMATOCRIT 37.4 % (42.0-52.0); LYMPH # 1.1 10*3/uL (1.3-4.4); LYMPH % 17.6 % (27.0-41.0); MEAN CELL VOLUME 95.2 fl (80.0-94.0); MEAN CORPUSCULAR HGB 28.8 pg (27.0-31.0); MEAN CORPUSCULAR HGB CONC 30.2 g/dl (33.0-37.0); MONO # 0.8 10*3/uL (0.1-1.0); MONO % 12.9 % (3.0-9.0); NEUT # 4.2 10*3/uL (2.3-7.9); NEUT % 67.4 % (47.0-73.0); PLATELET COUNT AUTOMATED 187 10*3/uL (130-400); RED BLOOD COUNT 3.93 10*6/uL (4.50-5.90); WHITE BLOOD COUNT 6.2 10*3/uL (4.8-10.8)
[2023-06-08] MEDS ORDERED: URSODIOL300 M1 PO (15:09)
[2023-06-08] MEDS ORDERED: SODIUM BICARBO650 MG PO (15:10)
[2023-06-08] MEDS ORDERED: Rocaltrol0.25 MCG PO (15:11)
[2023-06-08] MEDS ORDERED: B12 ACTIVE1000 MCG PO (15:11)
[2023-06-08 15:24] LABS: POTASSIUM 3.2 mmol/L (3.4-5.1); TOTAL PROTEIN 7.6 gm/dL (6.0-8.0)
[2023-06-08] MEDS ORDERED: OXYCODONE HCL5 MG PO ×2 (18:39→19:02)
== END 2023-06-08 19:17 | disposition home or self-care (01) ==
LOC: ED 14:15
PROVIDERS: Emergency Medicine
DX: S22.42XA Multiple fractures of ribs, left side, initial encounter for closed fracture (principal); D64.9 Anemia, unspecified; M10.9 Gout, unspecified; Z88.6 Allergy status to analgesic agent; Z98.890 Other specified postprocedural states; Z90.49 Acquired absence of other specified parts of digestive tract; Z96.651 Presence of right artificial knee joint; W19.XXXA Unspecified fall, initial encounter; Y93.89 Activity, other specified; Y92.89 Other specified places as the place of occurrence of the external cause; Y99.8 Other external cause status

== ENCOUNTER → 2023-09-09 | Outpatient (CLI) | payer MEDICARE, OTHER ==
[~2023-09-09] MED LIST changes: +B12 ACTIVE1000 MCG PO; +MYCOPHENOLIC A180 M1 PO; +OXYCODONE HCL5 MG PO; +Regadenoson 0.4 MG/5 ML SYR IV ONE; +Rocaltrol0.25 MCG PO; +SODIUM BICARBO650 MG PO; +Technetium Tc 99M Tetrofosmi 0.23 MG KIT IJ SCH; +URSODIOL300 M1 PO
== END | disposition home or self-care (01) ==
LOC: US 01:02 → CARD 09:30 → US 10:30
PROVIDERS: ATTEND Internal Medicine Nephrology
DX: Z01.818 Encounter for other preprocedural examination (principal); I08.0 Rheumatic disorders of both mitral and aortic valves; I12.0 Hypertensive chronic kidney disease with stage 5 chronic kidney disease or end stage renal disease; N18.6 End stage renal disease; N28.1 Cyst of kidney, acquired; Z99.2 Dependence on renal dialysis